=== PATIENT | male | born 1945 | race Caucasian/White ===

== ENCOUNTER → 2020-08-27 09:34 | Outpatient (BNVA) | payer BC, SELFPAY | PROVIDERS: PCP Family Medicine; Referring Provider Family Medicine; Visit Provider Nurse Practitioner Family | DX: Z12.5 Encounter for screening for malignant neoplasm of prostate (principal); N40.1 Benign prostatic hyperplasia with lower urinary tract symptoms; N39.43 Post-void dribbling; N39.41 Urge incontinence | CPT/HCPCS: 81003; G0103 ==

== ENCOUNTER → 2021-02-25 09:40 | Outpatient (BNVA) | payer MEDICARE, SELFPAY | PROVIDERS: PCP Family Medicine; Visit Provider Urology | DX: N40.1 Benign prostatic hyperplasia with lower urinary tract symptoms (principal) | CPT/HCPCS: 81003 ==

== ENCOUNTER → 2022-01-09 13:27 | Outpatient (BNVA) | payer MEDICARE, SELFPAY | PROVIDERS: PCP Family Medicine; Visit Provider Family Medicine | DX: E11.8 Type 2 diabetes mellitus with unspecified complications (principal); Z51.81 Encounter for therapeutic drug level monitoring; Z13.220 Encounter for screening for lipoid disorders | CPT/HCPCS: 80053; 80061; 85025 ==

== ENCOUNTER → 2022-04-03 08:08 | Outpatient (BNVA) | payer MEDICARE, SELFPAY | PROVIDERS: PCP Family Medicine; Visit Provider Family Medicine | DX: E53.8 Deficiency of other specified B group vitamins (principal); Z51.81 Encounter for therapeutic drug level monitoring; E11.9 Type 2 diabetes mellitus without complications; I10 Essential (primary) hypertension | CPT/HCPCS: 80053; 82043; 82607; 83036; 85025 ==

== ENCOUNTER → 2022-04-22 07:47 | Outpatient (BNVA) | payer MEDICARE, SELFPAY | PROVIDERS: PCP Family Medicine; Visit Provider Urology | DX: N40.1 Benign prostatic hyperplasia with lower urinary tract symptoms (principal); R31.0 Gross hematuria; N39.43 Post-void dribbling | CPT/HCPCS: 51741; 51798; 52000; 99214 ==

== ENCOUNTER → 2022-04-28 10:03 | Outpatient (BNVA) | payer MEDICARE, SELFPAY | PROVIDERS: PCP Family Medicine; Visit Provider Urology | DX: N40.1 Benign prostatic hyperplasia with lower urinary tract symptoms (principal); R31.0 Gross hematuria; N39.43 Post-void dribbling | CPT/HCPCS: 81003 ==

== ENCOUNTER → 2022-06-30 12:32 | Outpatient (BNVA) | payer MEDICARE, SELFPAY | PROVIDERS: PCP Family Medicine; Visit Provider Internal Medicine | DX: I10 Essential (primary) hypertension (principal); E11.9 Type 2 diabetes mellitus without complications; Z87.891 Personal history of nicotine dependence; Z79.4 Long term (current) use of insulin | CPT/HCPCS: 99214 ==

== ENCOUNTER → 2022-07-03 09:59 | Outpatient (BNVA) | payer MEDICARE, SELFPAY | PROVIDERS: PCP Family Medicine; Visit Provider Family Medicine | DX: E11.9 Type 2 diabetes mellitus without complications (principal); Z51.81 Encounter for therapeutic drug level monitoring; E55.9 Vitamin D deficiency, unspecified | CPT/HCPCS: 80053; 82306; 83036; 85025 ==

== ENCOUNTER → 2022-10-01 09:18 | Outpatient (BNVA) | payer MEDICARE, SELFPAY | PROVIDERS: PCP Family Medicine; Visit Provider Family Medicine | DX: E11.9 Type 2 diabetes mellitus without complications (principal); Z51.81 Encounter for therapeutic drug level monitoring; E55.9 Vitamin D deficiency, unspecified | CPT/HCPCS: 80053; 82306; 83036; 85025 ==

== ENCOUNTER → 2022-10-07 11:31 | Outpatient (BNVA) | payer MEDICARE, SELFPAY | PROVIDERS: PCP Family Medicine; Visit Provider Surgery | DX: K92.1 Melena (principal); K62.89 Other specified diseases of anus and rectum | CPT/HCPCS: 99213 ==

== ENCOUNTER → 2022-10-23 10:54 | Outpatient (BNVA) | payer MEDICARE, SELFPAY | PROVIDERS: PCP Family Medicine; Visit Provider Urology | DX: N40.1 Benign prostatic hyperplasia with lower urinary tract symptoms (principal) | CPT/HCPCS: 51741; 51798; 81003; 99213 ==

== ENCOUNTER 2022-11-12 05:48 | Day surgery (SDC) | payer MEDICARE, SELFPAY ==
[2022-11-10 09:39] VITALS: BMI 36.2
[2022-11-12 06:06] VITALS: BP 115/73; PULSE 73; RESP 18; TEMP 36.1; O2SAT 95
[2022-11-12] MEDS: sodium chloride 0.9% 1,000 ML 30 ML IV (06:30)
--- NOTE | 2022-11-12 06:41 | ANES.PREANE2 ---
Pre-Anesthetic Assessment Height/Weight: Height 1.8 m Weight 117.934 kg Temp Pulse Resp BP Pulse Ox O2 Del Method 97 F L 73 18 115/73 95 Room Air 11/12/22 06:06 11/12/22 06:06 11/12/22 06:06 11/12/22 06:06 11/12/22 06:06 11/12/22 06:06 Preop Diagnosis: Diarrhea, Hematochezia, Rectal Pain Operation Date: 11/12/22 07:00 Proposed Procedures p 67347 colon R19.7 , K92.1,K62.89(Not Applicable) - Tyrese Tsang DO Familial anesthetic complications: none Was Beta Mikaela taken within 24 hours: Yes Was Clonidine taken within 24 hours: N/A Last intake: Intake Last Liquid Date 11/11/22 Last Liquid Time 20:00 Last Solid Date 11/10/22 Last Solid Time 18:00 Social No alcohol and No tobacco Exam alert, No oriented x 3, clear to auscultation bilaterally and regular rate & rhythm Airway Submandibular: within normal limits Cervical ROM: within normal limits Mallampati: Class I Dentition: false Pulmonary Sleep Apnea (suspected undiagnosed observed apnea by spouse.) and None reported CV/HEM Hypertension None reported Hepatic None reported GI Gastroesophageal Reflux Disease Metabolic Diabetes Mellitus, Hyperlipidemia and Morbid Obesity Musc/skel Lower Back Pain and Osteoarthritis/DJD Neuropsych Transient Ischemic Attack Anesthetic Plan ASA status: 3 Anesthesia: MAC Medications/Allergies Home Medications Medication Instructions Recorded Confirmed Last Taken Type glimepiride 2 mg tablet 2 mg PO DAILY 11/11/19 11/10/22 11/10/22 History carvedilol 25 mg tablet 25 mg PO BID #60 tabs 03/20/22 11/10/22 11/12/22 Rx insulin detemir U-100 100 unit/mL See Rx Instructions .Route 04/10/22 11/10/22 11/10/22 Rx (3 mL) subcutaneous pen (Levemir .COMPLEX #60 mL FlexTouch U-100 Insulin) finasteride 5 mg tablet 5 mg PO QDAY #90 tabs 04/22/22 11/10/22 11/12/22 Rx atorvastatin 20 mg tablet 20 mg PO .HS #90 tabs 04/29/22 11/10/22 11/11/22 Rx furosemide 20 mg tablet 20 mg PO DAILY #90 tabs 05/28/22 11/10/22 11/09/22 Rx potassium chloride 10 mEq 10 meq PO DAILY #90 tabs 05/28/22 11/10/22 11/09/22 Rx tablet,extended release cholecalciferol (vitamin D3) 25 25 mcg PO DAILY #30 tabs 07/08/22 11/10/22 11/11/22 Rx mcg (1,000 unit) tablet metformin 500 mg tablet 500 mg PO BID #180 tabs 07/21/22 11/12/22 11/11/22 21:00 Rx clopidogrel 75 mg tablet 75 mg PO DAILY #90 tabs 07/30/22 11/10/22 11/07/22 Rx tamsulosin 0.4 mg capsule 0.4 mg PO .two at bedtime #60 caps 07/30/22 11/10/22 11/11/22 Rx amlodipine 10 mg tablet 10 mg PO DAILY #90 tabs 08/11/22 11/10/22 11/12/22 Rx sitagliptin phosphate 100 mg 100 mg PO DAILY #90 tabs 08/19/22 11/10/22 11/11/22 Rx tablet (Januvia) valsartan 160 See Rx Instructions .Route 08/20/22 11/10/22 11/12/22 Rx mg-hydrochlorothiazide 12.5 mg .COMPLEX #180 tabs tablet citalopram 10 mg tablet 10 mg PO DAILY #30 tabs 10/01/22 11/10/22 11/12/22 Rx famotidine 40 mg tablet 40 mg PO DAILY #90 tabs 10/01/22 11/10/22 11/10/22 Rx alprazolam 0.5 mg tablet 0.5 mg PO TID PRN anxiety #90 tabs 10/23/22 11/10/22 11/12/22 Rx Allergies Allergy/AdvReac Type Severity Reaction Status Date / Time No Known Allergies Allergy Verified 10/23/22 10:57 Current Medications Generic Name Dose Route Start Last Admin Trade Name Freq PRN Reason Stop Dose Admin Sodium Chloride 1,000 mls @ 30 mls/hr 11/12/22 06:15 11/12/22 06:30 Sodium Chloride 0.9% IV 11/13/22 06:14 30 mls/hr .Q24H NATALIE Administration PFSH Anesthesia Medical History BPH loc w urin obs/LUTS Diabetes History of TIA (transient ischemic attack) HTN (hypertension) with goal to be determined Urgency incontinence Urinary incontinence Surgical History Hx of colonoscopy with polypectomy Hx of umbilical hernia repair S/P carpal tunnel release S/P cervical spinal fusion Family History Mother , in her 80's Cancer breast with mets Father , at age 85 Dementia Other Diabetes Hypertension Stroke Social History Smoking and tobacco status: former smoker Alcohol intake: never Marital status: Current occupational status: retired Data Anesthesia Cardiac Studies: No Data to Display
[2022-11-12 06:55] LABS: Glucose Point of Care 166 mg/dL (70-110)
--- NOTE | 2022-11-12 07:05 | PM.HP ---
Providers/Chief Complaint Primary Care Provider: Wali Elena MD Chief Complaint: R19.7, K92.1, K92.89 History of Present Illness Rishi Fuentes is a 77 year old male here for colonoscopy with random biopsies Medications/Allergies Home Medications Medication Instructions Recorded Confirmed Last Taken Type glimepiride 2 mg tablet 2 mg PO DAILY 11/11/19 11/10/22 11/10/22 History carvedilol 25 mg tablet 25 mg PO BID #60 tabs 03/20/22 11/10/22 11/12/22 Rx insulin detemir U-100 100 unit/mL See Rx Instructions .Route 04/10/22 11/10/22 11/10/22 Rx (3 mL) subcutaneous pen (Levemir .COMPLEX #60 mL FlexTouch U-100 Insulin) finasteride 5 mg tablet 5 mg PO QDAY #90 tabs 04/22/22 11/10/22 11/12/22 Rx atorvastatin 20 mg tablet 20 mg PO .HS #90 tabs 04/29/22 11/10/22 11/11/22 Rx furosemide 20 mg tablet 20 mg PO DAILY #90 tabs 05/28/22 11/10/22 11/09/22 Rx potassium chloride 10 mEq 10 meq PO DAILY #90 tabs 05/28/22 11/10/22 11/09/22 Rx tablet,extended release cholecalciferol (vitamin D3) 25 25 mcg PO DAILY #30 tabs 07/08/22 11/10/22 11/11/22 Rx mcg (1,000 unit) tablet metformin 500 mg tablet 500 mg PO BID #180 tabs 07/21/22 11/12/22 11/11/22 21:00 Rx clopidogrel 75 mg tablet 75 mg PO DAILY #90 tabs 07/30/22 11/10/22 11/07/22 Rx tamsulosin 0.4 mg capsule 0.4 mg PO .two at bedtime #60 caps 07/30/22 11/10/22 11/11/22 Rx amlodipine 10 mg tablet 10 mg PO DAILY #90 tabs 08/11/22 11/10/22 11/12/22 Rx sitagliptin phosphate 100 mg 100 mg PO DAILY #90 tabs 08/19/22 11/10/22 11/11/22 Rx tablet (Januvia) valsartan 160 See Rx Instructions .Route 08/20/22 11/10/22 11/12/22 Rx mg-hydrochlorothiazide 12.5 mg .COMPLEX #180 tabs tablet citalopram 10 mg tablet 10 mg PO DAILY #30 tabs 10/01/22 11/10/22 11/12/22 Rx famotidine 40 mg tablet 40 mg PO DAILY #90 tabs 10/01/22 11/10/22 11/10/22 Rx alprazolam 0.5 mg tablet 0.5 mg PO TID PRN anxiety #90 tabs 10/23/22 11/10/22 11/12/22 Rx Allergies Allergy/AdvReac Type Severity Reaction Status Date / Time No Known Allergies Allergy Verified 10/23/22 10:57 PFSH Acute PFSH: Medical History BPH loc w urin obs/LUTS Diabetes History of TIA (transient ischemic attack) HTN (hypertension) with goal to be determined Urgency incontinence Urinary incontinence Surgical History Hx of colonoscopy with polypectomy Hx of umbilical hernia repair S/P carpal tunnel release S/P cervical spinal fusion Family History Mother , in her 80's Cancer breast with mets Father , at age 85 Dementia Other Diabetes Hypertension Stroke Social History Smoking and tobacco status: former smoker Alcohol intake: never Marital status: Current occupational status: retired Vitals/I&O/Wt Last Vital Signs Temp 97 F L 11/12/22 06:06 Pulse 73 11/12/22 06:06 Resp 18 11/12/22 06:06 BP 115/73 11/12/22 06:06 Pulse Ox 95 11/12/22 06:06 O2 Del Method Room Air 11/12/22 06:06 Weight last 48 hrs Weight 260 lb A&P Assessment and plan (1) Rectal pain: (2) Hematochezia: (3) Diarrhea: Plan Colonoscopy with random biopsies Attestations Medical Necessity Statement*: Home Coding Level of Care Code Acute Code for g Fwd Diagnoses Rectal pain K62.89 Hematochezia K92.1 Diarrhea R19.7
[2022-11-12 07:36] VITALS: BP 113/62; PULSE 69; RESP 16; TEMP 36.2; O2SAT 96
[2022-11-12 07:50] VITALS: BP 124/61; PULSE 67; RESP 16; O2SAT 94
--- NOTE | 2022-11-12 14:31 | ANE.PACU2 ---
Inpatient post-anesthesia follow up: Airway intact: Yes Vital signs: Temperature 97.1 F Pulse Rate 67 Respiratory Rate 16 Blood Pressure 124/61 Pulse Oximetry 94 Oxygen Delivery Me thod Room Air Oxygen Flow Rate Fraction of Inspir ed Oxygen Hydration adequate: Yes Nausea and vomiting: No Pain level: 2 Mental status: Baseline
== END 2022-11-12 08:05 | disposition home or self-care (01) ==
PROVIDERS: PCP Family Medicine; Visit Provider Surgery
PROC: 0DJD8ZZ Inspection of Lower Intestinal Tract, Via Natural or Artificial Opening Endoscopic (ICD-10-PCS; CPT 45378; principal; 2022-11-12 07:00)
DX: R19.7 Diarrhea, unspecified (principal); K92.1 Melena; K62.89 Other specified diseases of anus and rectum; K64.8 Other hemorrhoids; K60.1 Chronic anal fissure; K57.30 Diverticulosis of large intestine without perforation or abscess without bleeding; K63.5 Polyp of colon; G47.30 Sleep apnea, unspecified; I10 Essential (primary) hypertension; K21.9 Gastro-esophageal reflux disease without esophagitis; Z86.73 Personal history of transient ischemic attack (TIA), and cerebral infarction without residual deficits; E78.5 Hyperlipidemia, unspecified; E11.9 Type 2 diabetes mellitus without complications; E66.01 Morbid (severe) obesity due to excess calories; Z68.36 Body mass index [BMI] 36.0-36.9, adult; Z79.4 Long term (current) use of insulin; Z87.891 Personal history of nicotine dependence
CPT/HCPCS: 36415; 36416; 45380; 45385; 82274; 82962; 83630; 87493; 87506; 88305; J2704; J3490; J7030

== ENCOUNTER → 2022-11-26 16:50 | Outpatient (BNVA) | payer MEDICARE, SELFPAY | PROVIDERS: PCP Family Medicine; Visit Provider Surgery | DX: K64.9 Unspecified hemorrhoids (principal); K92.1 Melena; K62.89 Other specified diseases of anus and rectum; K63.5 Polyp of colon | CPT/HCPCS: 99024; 99203; 99212; 99213 ==

== ENCOUNTER → 2023-03-05 14:51 | Outpatient (BNVA) | payer MEDICARE, SELFPAY | PROVIDERS: PCP Family Medicine; Visit Provider Family Medicine | DX: Z51.81 Encounter for therapeutic drug level monitoring (principal); Z13.220 Encounter for screening for lipoid disorders; E11.9 Type 2 diabetes mellitus without complications; E53.8 Deficiency of other specified B group vitamins; I10 Essential (primary) hypertension | CPT/HCPCS: 80053; 80061; 82607; 83036; 85025 ==

== ENCOUNTER 2023-03-30 05:58 | Day surgery (SDC) | payer MEDICARE, SELFPAY ==
[2023-03-27 09:50] VITALS: BMI 36.2
[2023-03-30] VITALS (10 sets, daily range): BP systolic 90–144; BP diastolic 53–82; PULSE 60–68; RESP 15–18; TEMP 36.1–36.3; O2SAT 91–95
[2023-03-30] MEDS: sodium chloride 0.9% 1,000 ML 30 ML IV (06:34)
[2023-03-30 06:36] LABS: Glucose Point of Care 140 mg/dL (70-110)
--- NOTE | 2023-03-30 06:51 | ANES.PREANE2 ---
Pre-Anesthetic Assessment Height/Weight: Height 1.8 m Weight 117.934 kg Temp Pulse Resp BP Pulse Ox O2 Del Method 97 F L 65 18 144/67 95 Room Air 03/30/23 06:35 03/30/23 06:35 03/30/23 06:35 03/30/23 06:35 03/30/23 06:35 03/30/23 06:35 Operation Date: 03/30/23 07:00 Proposed Procedures p [id number] lateral internal sphincterectomy K62.89, K60.2(Not Applicable) - Tyrese Tsang DO Familial anesthetic complications: NOne Was Beta Mikaela taken within 24 hours: Yes Was Clonidine taken within 24 hours: N/A Last intake: Intake Last Liquid Date 03/29/23 Last Liquid Time 21:30 Last Solid Date 03/29/23 Last Solid Time 19:00 Social No alcohol and No tobacco Exam alert, oriented x 3, clear to auscultation bilaterally and regular rate & rhythm Airway Mallampati: Class III Dentition: false CV/HEM Hypertension GI Gastroesophageal Reflux Disease Metabolic Diabetes Mellitus and Morbid Obesity Neuropsych Transient Ischemic Attack (plavix holding since ) Anesthetic Plan ASA status: 3 Anesthesia: Choice Risk of > 500 ml blood loss (7ml/kg in children): No Medications/Allergies Home Medications Medication Instructions Recorded Confirmed Last Taken Type finasteride 5 mg tablet 5 mg PO QDAY #90 tabs 04/22/22 03/30/23 03/29/23 Rx atorvastatin 20 mg tablet 20 mg PO .HS #90 tabs 04/29/22 03/30/23 03/29/23 Rx furosemide 20 mg tablet 20 mg PO DAILY #90 tabs 05/28/22 03/30/23 03/29/23 Rx potassium chloride 10 mEq 10 meq PO DAILY #90 tabs 05/28/22 03/30/23 03/29/23 Rx tablet,extended release cholecalciferol (vitamin D3) 25 25 mcg PO DAILY #30 tabs 07/08/22 03/30/23 03/29/23 Rx mcg (1,000 unit) tablet metformin 500 mg tablet 500 mg PO BID #180 tabs 07/21/22 03/30/23 03/29/23 Rx clopidogrel 75 mg tablet 75 mg PO DAILY #90 tabs 07/30/22 03/27/23 03/23/23 Rx amlodipine 10 mg tablet 10 mg PO DAILY #90 tabs 08/11/22 03/30/23 03/30/23 Rx sitagliptin phosphate 100 mg 100 mg PO DAILY #90 tabs 08/19/22 03/30/23 03/29/23 Rx tablet (Januvia) valsartan 160 See Rx Instructions .Route 08/20/22 03/30/23 03/29/23 Rx mg-hydrochlorothiazide 12.5 mg .COMPLEX #180 tabs tablet famotidine 40 mg tablet 40 mg PO DAILY #90 tabs 10/01/22 03/30/23 03/29/23 Rx alprazolam 0.5 mg tablet 0.5 mg PO TID PRN anxiety #90 tabs 10/23/22 03/30/23 03/29/23 Rx glimepiride 2 mg tablet 2 mg PO DAILY #90 tabs 12/01/22 03/30/23 03/29/23 Rx tamsulosin 0.4 mg capsule 0.4 mg PO .two at bedtime #60 caps 12/01/22 03/30/23 03/29/23 Rx pen needle, diabetic 31 gauge x #100 ea 12/09/22 03/18/23 Unknown Rx 12/16 (BD Ultra-Fine Short Pen Needle) hydrocortisone 2.5 % topical cream See Rx Instructions .Route 12/24/22 03/27/23 Unknown Rx with perineal applicator .COMPLEX #28 grams (Procto-Med HC) carvedilol 25 mg tablet See Rx Instructions .Route 01/20/23 03/30/23 03/30/23 Rx .COMPLEX #60 tabs citalopram 10 mg tablet 10 mg PO DAILY #30 tabs 02/04/23 03/30/23 03/29/23 Rx insulin detemir U-100 100 unit/mL See Rx Instructions .Route 03/17/23 03/30/23 03/29/23 Rx (3 mL) subcutaneous pen (Levemir .COMPLEX #60 mL FlexTouch U-100 Insulin) Allergies Allergy/AdvReac Type Severity Reaction Status Date / Time No Known Allergies Allergy Verified 03/27/23 10:42 Current Medications Generic Name Dose Route Start Last Admin Trade Name Freq PRN Reason Stop Dose Admin Sodium Chloride 1,000 mls @ 30 mls/hr 03/30/23 06:15 03/30/23 06:34 Sodium Chloride 0.9% IV 03/31/23 06:14 30 mls/hr .Q24H NATALIE Administration PFSH Anesthesia Medical History BPH loc w urin obs/LUTS Diabetes History of TIA (transient ischemic attack) HTN (hypertension) with goal to be determined Urgency incontinence Urinary incontinence Surgical History Hx of colonoscopy with polypectomy Hx of umbilical hernia repair S/P carpal tunnel release S/P cervical spinal fusion Family History Mother , in her 80's Cancer breast with mets Father , at age 85 Dementia Other Diabetes Hypertension Stroke Social History (System 03/27/23 @ 10:42 by Marilin Rowley) Smoking and tobacco status: former smoker Alcohol intake: never Marital status: Current occupational status: retired Data Anesthesia Cardiac Studies: No Data to Display
[2023-03-30] MEDS: ceFAZolin 2,000 MG in sodium chloride 0.9% (plus) 50 ML 100 MG IV (07:14)
[2023-03-30] MEDS: lidocaine-epi 2% 20 mL INJ INJECTION (07:40)
--- NOTE | 2023-03-30 07:55 | PM.OP ---
Operative Report Date of procedure: March 30, 2023 Pre-op diagnosis: Chronic anal fissure Post-op diagnosis: Chronic anal fissure, grade 3 internal hemorrhoids at all 3 pillars Procedure done: Lateral internal sphincterotomy Specimens removed/disposition: None Surgeon: Dr. Tyrese Tsang DO Anesthesia: General Estimated blood loss (mL): 2 Complications: None apparent Brief History: This very pleasant 78-year-old gentleman who was found to have a chronic anal fissure by colonoscopy. He also had hemorrhoids at the time. He used Anusol as an outpatient and reported good results on his hemorrhoids. He still having sharp pains with bowel movements. He desired a lateral internal sphincterotomy. The risk benefits were explained and understood. He understands there is a small risk of incontinence of flatus and/or stool. He wishes to proceed. Procedure: Patient was wheeled in operative room and remained on the hospital bed in the supine position. General tracheal intubation was achieved by department anesthesia. The patient was then put into the prone jackknife position. His anus was inspected prepped and draped in usual sterile fashion. Timeout was performed. All present were in agreement. The intersphincteric groove was identified. An anoscope was then placed into the anus and the anus was inspected. There was a chronic posterior anal fissure identified. There were large grade 3 internal hemorrhoids at all 3 pillars. A 1.5 cm radial incision was made in the left lateral position over the intersphincteric groove. Blunt dissection with hemostats was then used to separate the internal anal sphincter from the external anal sphincter. The anal sphincter from lateral to the dentate line was from the other muscle fibers. Bovie cautery was then used to transect approximately one third of the internal anal sphincter. Hemostasis was achieved. 4-0 Monocryl was then used to close the incision in a subcuticular interrupted fashion. Sterile dressing was applied. Patient tolerated procedure well.
[2023-03-30] MEDS: HYDROcodone-acetaminophen 5-325 mg Tablet 1 TAB PO (09:16)
== END 2023-03-30 09:30 | disposition home or self-care (01) ==
PROVIDERS: PCP Family Medicine; Visit Provider Surgery
PROC: (CPT 46080; principal; 2023-03-30 07:00)
DX: K60.1 Chronic anal fissure (principal); K64.8 Other hemorrhoids
CPT/HCPCS: 46080; 36416; 82962; J0690; J1100; J2405; J2704; J3010; J3490; J7030

== ENCOUNTER → 2023-04-14 09:43 | Outpatient (BNVA) | payer MEDICARE, SELFPAY | PROVIDERS: PCP Family Medicine; Visit Provider Surgery | DX: K64.8 Other hemorrhoids (principal); Z98.890 Other specified postprocedural states | CPT/HCPCS: 99024; 99213 ==

== ENCOUNTER 2023-04-30 10:18 | Day surgery (SDC) | payer MEDICARE, SELFPAY ==
[2023-04-29 13:48] VITALS: BMI 36.2
[2023-04-30] VITALS (9 sets, daily range): BP systolic 123–157; BP diastolic 74–89; PULSE 47–96; RESP 16–19; TEMP 36.1–36.4; O2SAT 91–96
--- NOTE | 2023-04-30 10:39 | W.PM.OPSUD ---
Surgery/Procedure H&P Update DATE OF PROCEDURE: April 30, 2023 DATE H&P PERFORMED: 04/14/23 H&P UPDATE INFORMATION: I have reviewed H&P completed within last 30 days, I have examined patient prior to procedure and No changes to prior documentation PLANNED PROCEDURE: Operation Date: 04/30/23 11:50 Proposed Procedures p [id number] hemmorroidectomy K64.8(Not Applicable) - Tyrese Tsang DO
[2023-04-30] MEDS: sodium chloride 0.9% 1,000 ML 30 ML IV (10:47)
--- NOTE | 2023-04-30 10:58 | ANES.PAUD2 ---
Pre-Anesthetic Update Pre-Anesthetic Assessment: Date of Surgery/Procedure: 04/30/23 Proposed Procedure: Operation Date: 04/30/23 11:50 Proposed Procedures p [id number] hemmorroidectomy K64.8(Not Applicable) - Tyrese Tsang, DO Any changes to Pre-Anesthetic Assessment?: No Last Intake: Intake Last Liquid Date 04/29/23 Last Liquid Time 20:00 Last Solid Date 04/29/23 Last Solid Time 19:00 Vitals: Pulse Rhythm Regular 04/30/23 10:39 Pulse Strength 3+ Normal 04/30/23 10:39 Oxygen Delivery Me thod Room Air 04/30/23 10:39 Exam: Pre-Anes Outpt Exam: alert, oriented x 3, clear to auscultation bilaterally and regular rate & rhythm Cardiac Studies: No Data to Display
[2023-04-30] MEDS: midazolam 1 mg/mL INJ 2 mL 2 MG IVP (11:06)
[2023-04-30] MEDS: ceFAZolin 2,000 MG in sodium chloride 0.9% (plus) 50 ML 100 MG IV (11:37)
[2023-04-30] MEDS: thrombin 5,000 unit SDV 5000 UNIT XX (12:39)
[2023-04-30] MEDS: BUPivacaine liposome 13.3 mg/mL SDV 10 mL 133 MG INFILTRATI (12:39)
--- NOTE | 2023-04-30 12:39 | PM.OP ---
Operative Report Date of procedure: April 30, 2023 Pre-op diagnosis: Hemorrhoids Post-op diagnosis: same Procedure done: Hemorrhoidectomy Implants: Thrombin Gelfoam Specimens removed/disposition: Hemorrhoids Surgeon: Tyrese Tsang DO Anesthesia: General Estimated blood loss (mL): 5 Complications: None apparent Brief History: This very pleasant 78-year-old gentleman was found to have very large internal hemorrhoids. Medical treatment was unsuccessful. Hemorrhoidectomy was indicated. The risk and benefits were explained and documented. Procedure: Patient was well in the operative room and general endotracheal ovation was achieved by the department anesthesia. He was then placed into the prone jackknife position. The anus was inspected prepped and draped in usual sterile fashion. A timeout was performed. All present were in agreement. Retractor was used to examine the anus and he had sizable hemorrhoids at all 3 pillars. The largest pillar was the right posterior. All 3 pillars were taken in the same manner. The exterior most edge of the hemorrhoid was slightly ligated with electrocautery. The harmonic scalpel was then used to excise all 3 hemorrhoidal pillars. There was minimal bleeding. Thrombin-soaked Gelfoam was then placed into the anus. Sterile bandage was applied. Patient tolerated procedure well.
[2023-04-30] MEDS: BUPivacaine 0.5% INJ 10 mL INJECTION (12:41)
[2023-04-30 12:51] LABS: Glucose Point of Care 48 mg/dL (70-110)
[2023-04-30 12:51] LABS: Glucose Point of Care 129 mg/dL (70-110)
[2023-04-30] MEDS: HYDROcodone-acetaminophen 10-325 mg Tablet 1 TAB PO (13:49)
--- NOTE | 2023-04-30 14:34 | ANE.PACU2 ---
Inpatient post-anesthesia follow up: Airway intact: Yes Vital signs: Temperature 97.5 F Pulse Rate 61 Respiratory Rate 17 Blood Pressure 156/74 Pulse Oximetry 95 Oxygen Delivery Me thod Room Air Oxygen Flow Rate 6 Fraction of Inspir ed Oxygen Hydration adequate: Yes Nausea and vomiting: No Pain level: 2 Mental status: Baseline
== END 2023-04-30 14:15 | disposition home or self-care (01) ==
PROVIDERS: PCP Family Medicine; Visit Provider Surgery
PROC: (CPT 46260; principal; 2023-04-30 11:40)
DX: K64.8 Other hemorrhoids (principal); N40.1 Benign prostatic hyperplasia with lower urinary tract symptoms; N13.8 Other obstructive and reflux uropathy; E11.9 Type 2 diabetes mellitus without complications; Z86.73 Personal history of transient ischemic attack (TIA), and cerebral infarction without residual deficits; I10 Essential (primary) hypertension; Z87.891 Personal history of nicotine dependence
CPT/HCPCS: 46260; 36416; 82962; 88304; C9290; J0690; J1100; J2250; J2405; J2704; J2710; J3010; J3490; J7030

== ENCOUNTER 2023-05-12 11:11 | Observation (INO) | payer MEDICARE, SELFPAY ==
[2023-05-12] VITALS (10 sets, daily range): BP systolic 122–169; BP diastolic 50–75; PULSE 63–76; RESP 16–18; TEMP 36.5–36.8; O2SAT 95–98; BMI 36.2
[2023-05-12 11:39] LABS: Basophils % 0.5 %; Eosinophils # 0.3 10^3/uL (0.0-0.8); Eosinophils % 3.4 %; Hematocrit 39.3 % (37-53); Lymphocytes # 1.5 10^3/uL (0.8-4.8); Lymphocytes % 19.7 %; Mean Corpuscular HGB Conc 32.8 g/dL (30-55); Mean Corpuscular Hemoglobin 29.5 pg (27-33); Mean Corpuscular Volume 89.7 fl (82-101); Mean Platelet Volume 9.8 fL (7.4-10.4); Monocytes # 0.6 10^3/uL (0.2-0.9); Monocytes % 7.3 %; Neutrophils # 5.25 10^3/uL (1.8-7.7); Neutrophils % 68.6 %; Nucleated Red Blood Cells % 0 %; Platelet Count 249 10^3/cmm (157-399); Red Blood Count 4.38 10^6/uL (3.85-5.65); Red Cell Distribution Width 13.4 % (12.1-15.1); White Blood Count 7.66 10^3/uL (3.29-11.43)
--- NOTE | 2023-05-12 11:40 | W.ED.GIBLEED ---
HPI - GI Bleed General: Chief complaint: GI Bleed Stated complaint: rectal bleeding Time Seen by Provider: 05/12/23 11:26 Source: patient and family Mode of arrival: ambulatory Limitations: no limitations History of Present Illness: Patient is 78-year-old male who presents the emergency room with rectal bleeding. Patient had a recent hemorrhoidectomy surgery with Dr. Tsang on 04/30/23. Patient did report normal postoperative bleeding for approximately 4 to 5 days. Patient was reported to hold Plavix until bleeding was minimal. Patient stated that he did restart Plavix on 05/10/2023. Patient stated that he woke up this morning with gross amount of bright red rectal bleeding. States that he has had to wear pull-ups and has changed 5-6 pull-ups since this AM. Denies any abdominal pain, nausea, vomiting, chest pain, shortness of breath, pain. Does state that he does have current diarrhea and feels this is making it worse as it is irritating his rectum. No other complaints this time. MD complaint: blood on toilet paper, blood streaked stool and gross hematochezia Associated symptoms: Denies abdominal pain, chills, fever(s), headache(s), nausea, rash or vomiting Review of Systems Const: Denies: fever(s) or chills Eyes: Denies: change in vision or blurry vision ENMT: Denies: throat pain or mouth pain Card: Denies: chest pain or palpitations Resp: Denies: dyspnea or productive cough GI: Reports: hematochezia; Denies: abdominal pain, nausea or vomiting : Denies: flank pain or difficulty urinating Musc: Denies: neck pain or back pain Skin/Breast: Denies: rash Neuro: Denies: headache(s) Psych: Denies: anxiety PFSH ED PFSH: Medical History BPH loc w urin obs/LUTS Diabetes History of TIA (transient ischemic attack) HTN (hypertension) with goal to be determined Urgency incontinence Urinary incontinence Surgical History Hx of colonoscopy with polypectomy Hx of umbilical hernia repair S/P carpal tunnel release S/P cervical spinal fusion Family History Mother , in her 80's Cancer breast with mets Father , at age 85 Dementia Other Diabetes Hypertension Stroke Social History Smoking and tobacco status: former smoker Alcohol intake: never Marital status: Current occupational status: retired Physical Exam Const: COMMON NORMALS: patient oriented x3 and alert GENERAL APPEARANCE: cooperative ORIENTATION/CONSCIOUSNESS: Yes awake HENMT: COMMON NORMALS: normocephalic HEAD & SCALP: normal to inspection and normocephalic Eye: COMMON NORMALS: EOMs intact bilaterally Neck/C-Spine: COMMON NORMALS: full ROM, no lymphadenopathy and no JVD Chest: CHEST: Yes Symmetrical chest wall rise Resp: COMMON NORMALS: normal respiratory effort and clear to auscultation bilaterally EFFORT & INSPECTION: Yes symmetric chest movement AUSCULTATION: clear to auscultation bilaterally Cardio: COMMON NORMALS: no JVD and S1 normal heart sound present HEART SOUNDS: S1 normal heart sound present GI: COMMON NORMALS: Soft to palpation and non-tender AUSCULTATION: Yes normoactive bowel sounds PALPATION: Yes Soft to palpation : COMMON NORMALS: Yes no CVA tenderness BLADDER/KIDNEY EXAM: Yes no CVA tenderness Back/Pelvis: COMMON NORMALS: no CVA tenderness Neuro: COMMON NORMALS: patient oriented x3 SENSORIUM/ORIENTATION: Yes alert Course Vital Signs: Vital signs: Vital Signs Temperature 98.2 F 05/12/23 11:13 Pulse Rate 73 05/12/23 16:43 Respiratory Rate 16 05/12/23 16:43 Blood Pressure 169/71 05/12/23 16:43 Pulse Oximetry 96 05/12/23 16:43 Oxygen Delivery Me thod Room Air 05/12/23 11:49 MDM - GI Bleed Medical Decision Making Patient presents here with rectal bleeding and had a hemorrhoidectomy and restart his Plavix likely causing bleeding did give him TXA down here Dr. Tsang seen patient he still having some bleeding spoke to Dr. Tsang will admit for observation. Medical Records I reviewed the patient's medical records. Lab Data I reviewed the patient's lab results. 05/12/23 15:51 05/12/23 11:29 Laboratory Results WBC 7.66 10^3/uL (3.29-11.43) 05/12/23 11:29 RBC 4.38 10^6/uL (3.85-5.65) 05/12/23 11:29 Hgb 11.80 g/dL (11.27-16.99) 05/12/23 15:51 Hct 35.4 % (37-53) L 05/12/23 15:51 MCV 89.7 fl (82-101) 05/12/23 11:29 MCH 29.5 pg (27-33) 05/12/23 11: MCHC 32.8 g/dL (30-55) 05/12/23 11:29 RDW 13.4 % (12.1-15.1) 05/12/23 11: Plt Count 249 10^3/cmm (157-399) 05/12/23 11: MPV 9.8 fL (7.4-10.4) 05/12/23 11: Neut % (Auto) 68.6 % 05/12/23 11: Lymph % (Auto) 19.7 % 05/12/23 11:29 [place] % (Auto) 7.3 % 05/12/23 11:29 Eos % (Auto) 3.4 % 05/12/23 11: Baso % (Auto) 0.5 % 05/12/23 11: Neut # (Auto) 5.25 10^3/uL (1.8-7.7) 05/12/23 11:29 Lymph # (Auto) 1.5 10^3/uL (0.8-4.8) 05/12/23 11: [place] # (Auto) 0.6 10^3/uL (0.2-0.9) 05/12/23 11:29 Eos # (Auto) 0.3 10^3/uL (0.0-0.8) 05/12/23 11:29 Baso # (Auto) 0.0 10^3/uL (0.0-0.1) 05/12/23 11: Nucleated RBC % (auto) 0 % 05/12/23 11: Nucleated RBCs # 0.0 /100WBC 05/12/23 11: PT 13.60 SECONDS (12.1-14.9) 05/12/23 11: INR 1.01 (0.8-1.2) 05/12/23 11:29 Sodium 135 mmol/L (136-145) L 05/12/23 11:29 Potassium 4.5 mmol/L (3.5-5.1) 05/12/23 11:29 Chloride 101 mmol/L (98-107) 05/12/23 11:29 Carbon Dioxide 23 mmol/L (22-29) 05/12/23 11:29 Anion Gap 15.5 (5-19) 05/12/23 11:29 BUN 26 mg/dL (8-23) H 05/12/23 11:29 Creatinine 1.1 mg/dL (0.7-1.2) 05/12/23 11:29 GFR Calculation Not Reportable 05/12/23 11:29 Glucose 107 mg/dL (65-115) 05/12/23 11:29 Calculated Osmolality 285 mOsm/kg (285-295) 05/12/23 11:29 Calcium 8.6 mg/dL (8.5-10.5) 05/12/23 11:29 Total Bilirubin 0.3 mg/dL (0.15-1.2) 05/12/23 11:29 AST 11 U/L (0-40) 05/12/23 11:29 ALT 19 U/L (0-41) 05/12/23 11:29 Alkaline Phosphatase 92 U/L (40-130) 05/12/23 11:29 Total Protein 6.9 g/dL (6.6-8.7) 05/12/23 11:29 Albumin 4.0 g/dL (3.5-5.2) 05/12/23 11:29 Globulin 2.9 g/dL (1.3-4.6) 05/12/23 11:29 No radiology studies performed this visit Discharge Plan Discharge Patient Disposition: Placed in Observation Clinical Impression: Lower gastrointestinal hemorrhage Condition: Stable Prescriptions: No Action famotidine 40 mg tablet 40 mg PO DAILY Qty: 90 3RF metformin 500 mg tablet 500 mg PO BID Qty: 180 3RF (DME) pen needle, diabetic [BD Ultra-Fine Short Pen Needle] 31 gauge x 5/16 needle See Rx Instructions .Route Qty: 100 6RF Rx Instructions: As directed alprazolam 0.5 mg tablet 0.5 mg PO TID PRN (Reason: anxiety) Qty: 90 2RF docusate sodium [Colace] 100 mg capsule 100 mg PO BID Qty: 14 0RF carvedilol 25 mg tablet 25 mg PO BID atorvastatin 20 mg tablet 20 mg PO BEDTIME valsartan-hydrochlorothiazide 160-12.5 mg tablet 1 tab PO BID hydrocodone-acetaminophen 10-325 mg tablet 1 tab PO Q6H PRN (Reason: pain) Qty: 20 0RF Tylenol Ex Str Rapid Release 500 mg Tablet 1,000 mg PO Q6H PRN (Reason: Pain) Vitamin D3 10 mcg (400 unit) Tablet 10 mcg PO DAILY Levemir FlexPen 100 unit/mL (3 mL) insulin pen See Rx Instructions .ROUTE .COMPLEX Rx Instructions: 80 units subcutaneously in the am and 40 units in the pm citalopram 10 mg tablet 10 mg PO QAM potassium chloride 10 mEq tablet extended release 10 meq PO QAM clopidogrel 75 mg tablet 75 mg PO QAM glimepiride 2 mg tablet 2 mg PO BEDTIME tamsulosin 0.4 mg capsule 0.8 mg PO BEDTIME amlodipine 10 mg tablet 10 mg PO QAM furosemide 20 mg tablet 20 mg PO QAM finasteride 5 mg tablet 5 mg PO QAM Januvia 100 mg tablet 100 mg PO QAM Referrals: Tyrese Tsang DO [Physician] - 1-3 days Wali Elena MD [Primary Care Provider] - Discharge Diet: Advance as tolerated Discharge Activity: Resume usual activity Patient Instructions: Gastrointestinal Bleeding (ED) Activity Restrictions/Additional Instructions: hold plavix Coding Level of Care Code ED [employer] Attendant for Glynn Sharma
[2023-05-12 12:04] LABS: INR 1.01 (0.8-1.2)
[2023-05-12 12:09] LABS: Alanine Aminotransferase 19 U/L (0-41); Alkaline Phosphatase 92 U/L (40-130); Anion Gap 15.5 (5-19); Aspartate Amino Transferase 11 U/L (0-40); Blood Urea Nitrogen 26 mg/dL (8-23); Calcium 8.6 mg/dL (8.5-10.5); Carbon Dioxide 23 mmol/L (22-29); Chloride 101 mmol/L (98-107); Globulin 2.9 g/dL (1.3-4.6); Glucose 107 mg/dL (65-115); Osmolality Calculated 285 mOsm/kg (285-295); Potassium 4.5 mmol/L (3.5-5.1); Sodium 135 mmol/L (136-145); Total Bilirubin 0.3 mg/dL (0.15-1.2); Total Protein 6.9 g/dL (6.6-8.7)
--- NOTE | 2023-05-12 13:00 | PC.NURSE ---
THIS RN AND TECH WENT TO PATIENT ROOM, ALL LINES CHANGED AND BRIEF CHANGED DUE TO BEING SATURATED WITH BLOOD. NEW BRIEF AND LINENS PLACED.
--- NOTE | 2023-05-12 13:40 | P.CONIM_ITS ---
Providers/Reason For Consult Primary Care Provider: Wali Elena MD History of Present Illness History of Present Illness Rishi Fuentes is a 78 year old male Medications/Allergies Home Medications Medication Instructions Recorded Confirmed Last Taken Type metformin 500 mg tablet 500 mg PO BID #180 tabs 07/21/22 05/12/23 05/12/23 Rx famotidine 40 mg tablet 40 mg PO DAILY #90 tabs 10/01/22 05/12/23 05/12/23 Rx pen needle, diabetic 31 gauge x #100 ea 12/09/22 05/12/23 04/29/23 Rx 5/16 (BD Ultra-Fine Short Pen Needle) docusate sodium 100 mg capsule 100 mg PO BID #14 caps 03/30/23 05/12/23 05/12/23 Rx (Colace) alprazolam 0.5 mg tablet 0.5 mg PO TID PRN anxiety #90 tabs 04/21/23 05/12/23 04/30/23 Rx atorvastatin 20 mg tablet 20 mg PO BEDTIME 04/29/23 05/12/23 05/11/23 History carvedilol 25 mg tablet 25 mg PO BID 04/29/23 05/12/23 05/12/23 History valsartan 160 1 tab PO BID 04/29/23 05/12/23 05/12/23 History mg-hydrochlorothiazide 12.5 mg tablet hydrocodone 10 mg-acetaminophen 1 tab PO Q6H PRN pain #20 tabs 04/30/23 05/12/23 05/11/23 Rx 325 mg tablet acetaminophen 500 mg tablet 1,000 mg PO Q6H PRN Pain 05/12/23 05/12/23 Unknown History amlodipine 10 mg tablet 10 mg PO QAM 05/12/23 05/12/23 05/12/23 History cholecalciferol (vitamin D3) 10 10 mcg PO DAILY 05/12/23 05/12/23 Unknown Hi story mcg (400 unit) tablet (Vitamin D3) citalopram 10 mg tablet 10 mg PO QAM 05/12/23 05/12/23 05/12/23 History clopidogrel 75 mg tablet 75 mg PO QAM 05/12/23 05/12/23 05/12/23 History restarted 05/10/23 finasteride 5 mg tablet 5 mg PO QAM 05/12/23 05/12/23 05/12/23 History furosemide 20 mg tablet 20 mg PO QAM 05/12/23 05/12/23 05/12/23 History glimepiride 2 mg tablet 2 mg PO BEDTIME 05/12/23 05/12/23 05/11/23 History insulin detemir U-100 100 unit/mL See Rx Instructions .Route .COMPLEX 05/12/23 05/12/23 05/11/23 History (3 mL) subcutaneous pen (Levemir FlexPen) potassium chloride 10 mEq 10 meq PO QAM 05/12/23 05/12/23 05/12/23 History tablet,extended release sitagliptin phosphate 100 mg 100 mg PO QAM 05/12/23 05/12/23 05/12/23 History tablet (Januvia) tamsulosin 0.4 mg capsule 0.8 mg PO BEDTIME 05/12/23 05/12/23 05/11/23 History Allergies Allergy/AdvReac Type Severity Reaction Status Date / Time No Known Allergies Allergy Verified 05/12/23 12:22 Current Medications Generic Name Dose Route Start Last Admin Trade Name Freq PRN Reason Stop Dose Admin Tranexamic Acid 1,000 mg/ 110 mls @ 330 mls/hr 05/12/23 12:38 05/12/23 13:09 Sodium Chloride IV Infused Q1H PRN Infusion BLEEDING PFSH Acute PFSH: Medical History BPH loc w urin obs/LUTS Diabetes History of TIA (transient ischemic attack) HTN (hypertension) with goal to be determined Urgency incontinence Urinary incontinence Surgical History Hx of colonoscopy with polypectomy Hx of umbilical hernia repair S/P carpal tunnel release S/P cervical spinal fusion Family History Mother , in her 80's Cancer breast with mets Father , at age 85 Dementia Other Diabetes Hypertension Stroke Social History Smoking and tobacco status: former smoker Alcohol intake: never Marital status: Current occupational status: retired Vitals/I&O/Wt Last Vital Signs Temp 98.2 F 05/12/23 11:13 Pulse 71 05/12/23 11:49 Resp 18 05/12/23 11:49 BP 140/72 05/12/23 11:49 Pulse Ox 96 05/12/23 11:49 O2 Del Method Room Air 05/12/23 11:49 05/11/23 05/12/23 05/12/23 22:59 06:59 14:59 Intake Total 110 / 110 Balance 110 / 110 Weight last 48 hrs Weight 260 lb Data 05/12/23 11:29 05/12/23 11:29 Coding Level of Care Code Acute Code for Chg Fwd Diagnoses
--- NOTE | 2023-05-12 14:45 | PC.NURSE ---
RN AT BEDSIDE, BLEEDING ASSESSED. PATIENT HAS SATURATED THE BED, BRIEF AND ARTEM. MD NOTIFIED AND MD TO REACH OUT TO SURGEON. PATIENT DENIES ANY SYMPTOMS AT THIS TIME.
[2023-05-12 16:01] LABS: Hematocrit 35.4 % (37-53)
--- NOTE | 2023-05-12 16:41 | PC.NURSE ---
RN AT BEDSIDE, BRIEF AND PACKAGE OF 4X4 GAUZE WAS REMOVED ALONG WITH ARTEM, ALL WERE SATURATED WITH BLOOD. PATIENT DENIES ANY SYMPTOMS AT THIS TIME.
--- NOTE | 2023-05-12 16:49 | PM.HP ---
Providers/Chief Complaint Primary Care Provider: Wali Elena MD Chief Complaint: rectal bleeding History of Present Illness Rishi Fuentes is a 78 year old male who underwent hemorrhoidectomy 12 days ago and presents to the hospital today with rectal bleeding. He started taking his Plavix again yesterday and today has had significant bright red blood per rectum. He still has postoperative pain which is improving. Denies any other new symptoms. Denies any lightheadedness, weakness or dizziness. Review of Systems General: Reports: 10 or more systems reviewed and unremarkable except in HPI and below Medications/Allergies Home Medications Medication Instructions Recorded Confirmed Last Taken Type metformin 500 mg tablet 500 mg PO BID #180 tabs 07/21/22 05/12/23 05/12/23 Rx famotidine 40 mg tablet 40 mg PO DAILY #90 tabs 10/01/22 05/12/23 05/12/23 Rx pen needle, diabetic 31 gauge x #100 ea 12/09/22 05/12/23 04/29/23 Rx 5/16 (BD Ultra-Fine Short Pen Needle) docusate sodium 100 mg capsule 100 mg PO BID #14 caps 03/30/23 05/12/23 05/12/23 Rx (Colace) alprazolam 0.5 mg tablet 0.5 mg PO TID PRN anxiety #90 tabs 04/21/23 05/12/23 04/30/23 Rx atorvastatin 20 mg tablet 20 mg PO BEDTIME 04/29/23 05/12/23 05/11/23 History carvedilol 25 mg tablet 25 mg PO BID 04/29/23 05/12/23 05/12/23 History valsartan 160 1 tab PO BID 04/29/23 05/12/23 05/12/23 History mg-hydrochlorothiazide 12.5 mg tablet hydrocodone 10 mg-acetaminophen 1 tab PO Q6H PRN pain #20 tabs 04/30/23 05/12/23 05/11/23 Rx 325 mg tablet acetaminophen 500 mg tablet 1,000 mg PO Q6H PRN Pain 05/12/23 05/12/23 Unknown History amlodipine 10 mg tablet 10 mg PO QAM 05/12/23 05/12/23 05/12/23 History cholecalciferol (vitamin D3) 10 10 mcg PO DAILY 05/12/23 05/12/23 Unknown History mcg (400 unit) tablet (Vitamin D3) citalopram 10 mg tablet 10 mg PO QAM 05/12/23 05/12/23 05/12/23 History clopidogrel 75 mg tablet 75 mg PO QAM 05/12/23 05/12/23 05/12/23 History restarted 05/10/23 finasteride 5 mg tablet 5 mg PO QAM 05/12/23 05/12/23 05/12/23 History furosemide 20 mg tablet 20 mg PO QAM 05/12/23 05/12/23 05/12/23 History glimepiride 2 mg tablet 2 mg PO BEDTIME 05/12/23 05/12/23 05/11/23 History insulin detemir U-100 100 unit/mL See Rx Instructions .Route .COMPLEX 05/12/23 05/12/23 05/11/23 History (3 mL) subcutaneous pen (Levemir FlexPen) potassium chloride 10 mEq 10 meq PO QAM 05/12/23 05/12/23 05/12/23 History tablet,extended release sitagliptin phosphate 100 mg 100 mg PO QAM 05/12/23 05/12/23 05/12/23 History tablet (Januvia) tamsulosin 0.4 mg capsule 0.8 mg PO BEDTIME 05/12/23 05/12/23 05/11/23 History Allergies Allergy/AdvReac Type Severity Reaction Status Date / Time No Known Allergies Allergy Verified 05/12/23 12:22 PFSH Acute PFSH: Medical History (Updated 05/12/23 @ 16:51 by Tyrese Tsang DO) BPH loc w urin obs/LUTS Diabetes History of TIA (transient ischemic attack) HTN (hypertension) with goal to be determined Urgency incontinence Urinary incontinence Surgical History (Updated 05/12/23 @ 16:51 by Tyrese Tsang DO) Hx of colonoscopy with polypectomy Hx of umbilical hernia repair S/P carpal tunnel release S/P cervical spinal fusion Status post hemorrhoidectomy Family History Mother , in her 80's Cancer breast with mets Father , at age 85 Dementia Other Diabetes Hypertension Stroke Social History Smoking and tobacco status: former smoker Alcohol intake: never Marital status: Current occupational status: retired Vitals/I&O/Wt Last Vital Signs Temp 98.2 F 05/12/23 11:13 Pulse 73 05/12/23 16:43 Resp 16 05/12/23 16:43 BP 169/71 05/12/23 16:43 Pulse Ox 96 05/12/23 16:43 O2 Del Method Room Air 05/12/23 11:49 05/12/23 05/12/23 05/12/23 06:59 14:59 22:59 Intake Total 220 / 220 Balance 220 / 220 Weight last 48 hrs Weight 260 lb Physical Exam Narrative: General : Patient is well developed , no acute distress, oriented x3 Head : Normal cephalic, a-traumatic. Ears : Pinnae and external canal are normal. Hearing is normal. Eyes : PERRLA, Sclera and injection are normal. No conjunctival discharge. Nose : Mucous membranes are without erythema. Throat : buccal mucosa is normal, gums are without significant recession or hypertrophy. Lungs : Equal chest rise bilaterally, no use of accessory muscles, trachea is midline. Cor : Rate and rhythm are normal. Abdomen : Soft, ND, NT, no g/r/m Rectal: There is bright red blood coming from his rectum Extremities : No edema, no cyanosis or clubbing, dorsalis pedis pulses are present bilaterally, non-tender to palpation of calves. Upper extremities are normal bilaterally. Back : non-tender to palpation, no CVA tenderness. Neuro : CN II - XII intact, Upper and lower extremities have equal and full strength Data 05/12/23 15:51 05/12/23 11:29 A&P Assessment and plan (1) Status post hemorrhoidectomy: (2) Lower gastrointestinal hemorrhage: (3) History of TIA (transient ischemic attack): Plan Tranexamic acid 1 mg every hours x2 was given. Patient continues to have bleeding and is very concerned. He would like to be kept in the hospital overnight. We will accommodate. Regular diet A.m. labs See orders Attestations Medical Necessity Statement*: Patient requires at least 1 night in the hospital for observation for lower GI bleed Coding Level of Care Code 60593 Diagnoses Status post hemorrhoidectomy Z98.890; Z87.19 Lower gastrointestinal hemorrhage K92.2 History of TIA (transient ischemic attack) Z86.73
[2023-05-12] MEDS: D5-NS 0.45% + KCL 20 mEq 20 MEQ/1,000 ML BAG 75 MEQ IV (17:45)
--- NOTE | 2023-05-12 18:19 | PC.NURSE ---
CHUCKS, BRIEF AND 4X4'S ALL CHANGED AT THIS TIME DUE TO THEM BEING SATURATED. PATIENT DENIES ANY SYMPTOMS AT THIS TIME.
[2023-05-13] VITALS: BP 128/69; PULSE 84; RESP 16; TEMP 36.4; O2SAT 95
[2023-05-13 04:59] LABS: Basophils # 0.1 10^3/uL (0.0-0.1); Basophils % 0.8 %; Eosinophils # 0.2 10^3/uL (0.0-0.8); Eosinophils % 3.4 %; Hematocrit 34.4 % (37-53); Lymphocytes % 31.3 %; Mean Corpuscular HGB Conc 33.1 g/dL (30-55); Mean Corpuscular Hemoglobin 29.8 pg (27-33); Mean Corpuscular Volume 89.8 fl (82-101); Mean Platelet Volume 9.7 fL (7.4-10.4); Monocytes # 0.6 10^3/uL (0.2-0.9); Monocytes % 9.4 %; Neutrophils # 3.56 10^3/uL (1.8-7.7); Neutrophils % 54.6 %; Nucleated Red Blood Cells % 0 %; Platelet Count 242 10^3/cmm (157-399); Red Blood Count 3.83 10^6/uL (3.85-5.65); Red Cell Distribution Width 13.4 % (12.1-15.1); White Blood Count 6.51 10^3/uL (3.29-11.43)
[2023-05-13 05:00] VITALS: BP 158/74; PULSE 86; RESP 19; TEMP 36.4; O2SAT 95
[2023-05-13 05:22] LABS: Anion Gap 13.2 (5-19); Blood Urea Nitrogen 29 mg/dL (8-23); Carbon Dioxide 25 mmol/L (22-29); Chloride 104 mmol/L (98-107); Glucose 159 mg/dL (65-115); Magnesium 1.9 mg/dL (1.7-2.3); Osmolality Calculated 295 mOsm/kg (285-295); Potassium 4.2 mmol/L (3.5-5.1); Sodium 138 mmol/L (136-145)
--- NOTE | 2023-05-13 05:41 | PC.NURSE ---
Pt still having bright red blood for bowel movements,Pts briefs changed and no pain reported.
[2023-05-13] MEDS: D5-NS 0.45% + KCL 20 mEq 20 MEQ/1,000 ML BAG 75 MEQ IV (06:15)
[2023-05-13 06:53] LABS: Glucose Point of Care 214 mg/dL (70-110)
[2023-05-13 08:00] VITALS: BP 157/72; PULSE 73; RESP 18; TEMP 36.5; O2SAT 97
[2023-05-13] MEDS: pantoprazole DR 40 mg Tablet PO (08:27)
[2023-05-13] MEDS: ALPRAZolam 0.5 mg Tablet PO ×2 (09:42→20:29)
--- NOTE | 2023-05-13 10:51 | PC.NURSE ---
Patient brief is soaked with bright red blood. Blood also soaking chris underneath pt. Large clots noted. This is the second time this has occurred this am. Dr. Tsang contacted this time by this nurse. States he is finishing up in surgery and then he will be coming up to see pt.
--- NOTE | 2023-05-13 11:12 | PC.CHAP ---
Pastoral Care Encounter/Spiritual Assessment Type of Contact [] Declined labor/excavator visit [] Patient/Family/Request visit [] Outpatient visit [] Follow-up visit [] Physician referral [] Code/Alert [x] Routine visit [] Staff referral [] Actively dying [] Patient sleeping [x] Family support [] [] Out of room [] Palliative care [] [] Receiving care in room [] Pre-surgical visit [] Trauma [] Long length of stay [] ICU visit [] Other: Relational/Emotional Strength [x] Patient feels connected with others/family/visitors/staff [] Distress [] Loneliness/isolation [] Abandonment Spirituality of Patient [] Person of Rosanne [] Attends Jew of their Rosanne [x] Believes in Prayer [] Reads Bible or Episcopal materials [] There are Spiritual issues to be addressed Spa Concierge Interventions [x] Prayer [x] Active listening [] Non-anxious presence [] Spiritual/emotional support [] Crisis/trauma care [] Spiritual counseling [] Bereavement support [] Provided bereavement packet [] Provided Bible/devotional materials [] Provided toy/stuffed animal, coloring book to patient or family member [] Provided Communion [] Anointing/[place] [] Salvation [] Completed spiritual assessment [] Other: Impact on Illness or Injury [] Angry [] Fearful [] Anxious [] Often cries [] Exhaustion [] Unable to work [] Unable to attend druze [] Unable to walk/stand [] Unable to read [] Unable to drive [] Unable to eat/drink [] Unable to sleep [] Unable to be with family [] Patient intubated [] Other: Summary 10 min Time spent with patient
[2023-05-13 11:25] LABS: Glucose Point of Care 232 mg/dL (70-110)
[2023-05-13] MEDS: insulin lispro 100 unit/1 mL SUBCUT ×3 (11:40→20:27)
[2023-05-13 11:59] VITALS: BP 158/69; PULSE 86; RESP 20; TEMP 36.4; O2SAT 96
--- NOTE | 2023-05-13 13:09 | PM.PN ---
Subjective Subjective: Patient continues to have bright red blood per rectum and rectal pain after hemorrhoidectomy Vitals/I&O/Wt Last Vital Signs Temp 97.5 F L 05/13/23 11:59 Pulse 86 05/13/23 11:59 Resp 20 H 05/13/23 11:59 BP 158/69 05/13/23 11:59 Pulse Ox 96 05/13/23 11:59 O2 Del Method Room Air 05/13/23 11:59 05/12/23 05/13/23 05/13/23 22:59 06:59 14:59 Intake Total 120 / 340 937.5 / 1277.5 480 / 480 Balance 120 / 340 937.5 / 1277.5 480 / 480 Weight last 48 hrs Weight 260 lb Physical Exam Narrative: General: No acute distress, awake alert and oriented x3 Rectal: No sign of recurrent hemorrhoids, there is bright red blood soaking through his garments but I do not see any active bleeding at this time Data 05/13/23 04:48 05/13/23 04:48 A&P Assessment and plan (1) Status post hemorrhoidectomy: (2) Lower gastrointestinal hemorrhage: Plan Postoperative day #13 status post hemorrhoidectomy with postoperative bleeding after restarting Plavix Hemoglobin has been stable and vitals are within normal limits Repeat H&H I placed thrombin-soaked Gelfoam into the anus We will reassess in the afternoon Attestations Medical Necessity Statement*: We will reassess this afternoon. If patient continues to bleed significantly he will need 1 more night in the hospital for observation Coding Level of Care Code 51343 Diagnoses Status post hemorrhoidectomy Z98.890; Z87.19 Lower gastrointestinal hemorrhage K92.2
[2023-05-13 13:35] LABS: Hematocrit 28.1 % (37-53)
[2023-05-13 16:31] LABS: Glucose Point of Care 226 mg/dL (70-110)
[2023-05-13 16:40] VITALS: BP 169/69; PULSE 84; RESP 17; TEMP 36.6; O2SAT 95
[2023-05-13 19:27] VITALS: BP 140/66; PULSE 84; RESP 18; TEMP 37.4; O2SAT 95
[2023-05-13 20:00] LABS: Glucose Point of Care 272 mg/dL (70-110)
[2023-05-14] VITALS: BP 129/73; PULSE 84; RESP 16; TEMP 37.2; O2SAT 98
[2023-05-14 04:44] VITALS: BP 129/77; PULSE 88; RESP 16; TEMP 37.2; O2SAT 96
--- NOTE | 2023-05-14 04:45 | PC.NURSE ---
pt has ambulated to bathroom on him own
[2023-05-14 05:14] LABS: Basophils % 0.6 %; Eosinophils # 0.1 10^3/uL (0.0-0.8); Hematocrit 25.9 % (37-53); Lymphocytes # 2.2 10^3/uL (0.8-4.8); Lymphocytes % 32.4 %; Mean Corpuscular HGB Conc 32.4 g/dL (30-55); Mean Corpuscular Hemoglobin 29.5 pg (27-33); Mean Corpuscular Volume 90.9 fl (82-101); Mean Platelet Volume 10.1 fL (7.4-10.4); Monocytes # 0.5 10^3/uL (0.2-0.9); Monocytes % 7.8 %; Neutrophils # 3.87 10^3/uL (1.8-7.7); Neutrophils % 56.6 %; Nucleated Red Blood Cells % 0 %; Platelet Count 223 10^3/cmm (157-399); Red Blood Count 2.85 10^6/uL (3.85-5.65); Red Cell Distribution Width 13.6 % (12.1-15.1); White Blood Count 6.83 10^3/uL (3.29-11.43)
[2023-05-14 05:38] LABS: Anion Gap 11.9 (5-19); Blood Urea Nitrogen 23 mg/dL (8-23); Calcium 8.2 mg/dL (8.5-10.5); Carbon Dioxide 24 mmol/L (22-29); Chloride 103 mmol/L (98-107); Glucose 153 mg/dL (65-115); Magnesium 1.8 mg/dL (1.7-2.3); Osmolality Calculated 287 mOsm/kg (285-295); Potassium 3.9 mmol/L (3.5-5.1); Sodium 135 mmol/L (136-145)
[2023-05-14 06:19] LABS: Glucose Point of Care 221 mg/dL (70-110)
[2023-05-14 07:39] VITALS: BP 173/81; PULSE 77; RESP 18; TEMP 36.9; O2SAT 96
[2023-05-14] MEDS: insulin lispro 100 unit/1 mL SUBCUT ×2 (08:07→11:52)
[2023-05-14] MEDS: pantoprazole DR 40 mg Tablet PO (08:08)
[2023-05-14 11:22] VITALS: BP 142/71; PULSE 86; RESP 18; TEMP 36.5; O2SAT 97
[2023-05-14 11:44] LABS: Glucose Point of Care 218 mg/dL (70-110)
--- NOTE | 2023-05-14 13:58 | P.DS_ITS ---
Discharge Providers Date of Admission: 05/12/23 16:52 Date of Discharge: May 14, 2023 Attending Provider at Admission: Tyrese Tsang DO Attending Provider at Discharge: Tyrese Tsang DO Primary Care Provider: Wali Elena MD Diagnoses at Discharge Discharge Diagnosis (1) Status post hemorrhoidectomy: Status: Acute (2) Lower gastrointestinal hemorrhage: Status: Acute Reason for Visit Reason for Visit: rectal bleeding Hospital Course Hospital Course This very pleasant 72-year-old gentleman who came into the hospital on postoperative day 12 following hemorrhoidectomy. He had restarted his Plavix and was having rectal bleeding. He was held for observation. The bleeding stopped and his hemoglobin was stable prior to discharge. Physical Exam Narrative: General : Patient is well developed , no acute distress, oriented x3 Head : Normal cephalic, a-traumatic. Ears : Pinnae and external canal are normal. Hearing is normal. Eyes : PERRLA, Sclera and injection are normal. No conjunctival discharge. Nose : Mucous membranes are without erythema. Throat : buccal mucosa is normal, gums are without significant recession or hypertrophy. Lungs : Equal chest rise bilaterally, no use of accessory muscles, trachea is midline. Cor : Rate and rhythm are normal. Abdomen : Soft, ND, NT, no g/r/m Extremities : No edema, no cyanosis or clubbing, dorsalis pedis pulses are present bilaterally, non-tender to palpation of calves. Upper extremities are normal bilaterally. Back : non-tender to palpation, no CVA tenderness. Neuro : CN II - XII intact, Upper and lower extremities have equal and full strength Discharge Data Studies Completed and Pending Pending at discharge Category Date Time Status Basic Metabolic Panel AM LABS Lab 05/15/23 04:00 Ordered Complete Blood Count w/Auto AM LABS Lab 05/15/23 04:00 Ordered Magnesium AM LABS Lab 05/15/23 04:00 Ordered Laboratory Results WBC 6.83 10^3/uL (3.29-11.43) 05/14/23 04:22 RBC 2.85 10^6/uL (3.85-5.65) L 05/14/23 04:22 Hgb 8.40 g/dL (11.27-16.99) L 05/14/23 04:22 Hct 25.9 % (37-53) L 05/14/23 04:22 MCV 90.9 fl (82-101) 05/14/23 04:22 MCH 29.5 pg (27-33) 05/14/23 04:22 MCHC 32.4 g/dL (30-55) 05/14/23 04:22 RDW 13.6 % (12.1-15.1) 05/14/23 04:22 Plt Count 223 10^3/cmm (157-399) 05/14/23 04:22 MPV 10.1 fL (7.4-10.4) 05/14/23 04:22 Neut % (Auto) 56.6 % 05/14/23 04:22 Lymph % (Auto) 32.4 % 05/14/23 04:22 [place] % (Auto) 7.8 % 05/14/23 04:22 Eos % (Auto) 2.0 % 05/14/23 04:22 Baso % (Auto) 0.6 % 05/14/23 04:22 Neut # (Auto) 3.87 10^3/uL (1.8-7.7) 05/14/23 04:22 Lymph # (Auto) 2.2 10^3/uL (0.8-4.8) 05/14/23 04:22 [place]ville # (Auto) 0.5 10^3/uL (0.2-0.9) 05/14/23 04:22 Eos # (Auto) 0.1 10^3/uL (0.0-0.8) 05/14/23 04:22 Baso # (Auto) 0.0 10^3/uL (0.0-0.1) 05/14/23 04:22 Nucleated RBC % (auto) 0 % 05/14/23 04:22 Nucleated RBCs # 0.0 /100WBC 05/14/23 04:22 PT 13.60 SECONDS (12.1-14.9) 05/12/23 11:29 INR 1.01 (0.8-1.2) 05/12/23 11:29 Sodium 135 mmol/L (136-145) L 05/14/23 04:22 Potassium 3.9 mmol/L (3.5-5.1) 05/14/23 04:22 Chloride 103 mmol/L (98-107) 05/14/23 04:22 Carbon Dioxide 24 mmol/L (22-29) 05/14/23 04:22 Anion Gap 11.9 (5-19) 05/14/23 04:22 BUN 23 mg/dL (8-23) 05/14/23 04:22 Creatinine 1.0 mg/dL (0.7-1.2) 05/14/23 04:22 GFR Calculation Not Reportable 05/14/23 04:22 Glucose 153 mg/dL (65-115) H 05/14/23 04:22 POC Glucose 218 mg/dL (70-110) H 05/14/23 11:39 Calculated Osmolality 287 mOsm/kg (285-295) 05/14/23 04:22 Calcium 8.2 mg/dL (8.5-10.5) L 05/14/23 04:22 Magnesium 1.8 mg/dL (1.7-2.3) 05/14/23 04:22 Total Bilirubin 0.3 mg/dL (0.15-1.2) 05/12/23 11:29 AST 11 U/L (0-40) 05/12/23 11:29 ALT 19 U/L (0-41) 05/12/23 11:29 Alkaline Phosphatase 92 U/L (40-130) 05/12/23 11:29 Total Protein 6.9 g/dL (6.6-8.7) 05/12/23 11:29 Albumin 4.0 g/dL (3.5-5.2) 05/12/23 11:29 Globulin 2.9 g/dL (1.3-4.6) 05/12/23 11:29 Blood Type O Positive 05/12/23 11:29 Rho(D) Type Positive 05/12/23 11:29 Antibody Screen Negative 05/12/23 11:29 Procedures Performed None Vitals Last Vital Signs Temp 97.7 F 05/14/23 11:22 Pulse 86 05/14/23 11:22 Resp 18 05/14/23 11:22 BP 142/71 05/14/23 11:22 Pulse Ox 97 05/14/23 11:22 O2 Del Method Room Air 05/14/23 11:22 Discharge Plan Discharge Patient Disposition: Home Condition: Stable Prescriptions: Continued famotidine 40 mg tablet 40 mg PO DAILY Qty: 90 3RF metformin 500 mg tablet 500 mg PO BID Qty: 180 3RF (DME) pen needle, diabetic [BD Ultra-Fine Short Pen Needle] 31 gauge x 5/16 needle See Rx Instructions .Route Qty: 100 6RF Rx Instructions: As directed alprazolam 0.5 mg tablet 0.5 mg PO TID PRN (Reason: anxiety) Qty: 90 2RF docusate sodium [Colace] 100 mg capsule 100 mg PO BID Qty: 14 0RF carvedilol 25 mg tablet 25 mg PO BID atorvastatin 20 mg tablet 20 mg PO BEDTIME valsartan-hydrochlorothiazide 160-12.5 mg tablet 1 tab PO BID hydrocodone-acetaminophen 10-325 mg tablet 1 tab PO Q6H PRN (Reason: pain) Qty: 20 0RF acetaminophen 500 mg Tablet 1,000 mg PO Q6H PRN (Reason: Pain) Vitamin D3 10 mcg (400 unit) Tablet 10 mcg PO DAILY Levemir FlexPen 100 unit/mL (3 mL) insulin pen See Rx Instructions .ROUTE .COMPLEX Rx Instructions: 80 units subcutaneously in the am and 40 units in the pm citalopram 10 mg tablet 10 mg PO QAM potassium chloride 10 mEq tablet extended release 10 meq PO QAM glimepiride 2 mg tablet 2 mg PO BEDTIME tamsulosin 0.4 mg capsule 0.8 mg PO BEDTIME amlodipine 10 mg tablet 10 mg PO QAM furosemide 20 mg tablet 20 mg PO QAM finasteride 5 mg tablet 5 mg PO QAM Januvia 100 mg tablet 100 mg PO QAM Held clopidogrel 75 mg tablet 75 mg PO QAM Hold Instructions: Resume on 05/21/23. Discharge Orders: Discharge Order (Routine); Ordered 05/14/23 Ordered By: Tyrese Tsang Referrals: Tyrese Tsang DO [Physician] - 1 week Wali Elena MD [Primary Care Provider] - 4-7 days Discharge Diet: Advance as tolerated Discharge Activity: Resume usual activity Patient Instructions: Gastrointestinal Bleeding (ED), Opioid Safety Activity Restrictions/Additional Instructions: Sitz bath's 3 times daily and after bowel movements Discharge Attestations Time Spent in Discharge Care*: less than 30 min Quality Metrics Clinical Quality Measures [ No reported AMI, CVA or VTE this stay] Coding Level of Care Code Acute Code for Chg Fwd Diagnoses Status post hemorrhoidectomy Z98.890; Z87.19 Lower gastrointestinal hemorrhage K92.2
[2023-05-14 15:00] VITALS: BP 142/71; PULSE 86; RESP 18; TEMP 36.5; O2SAT 97
--- NOTE | 2023-05-14 15:31 | PC.NURSE ---
1500- Discharge instructions given to patient and family with no questions or concerns voiced at this time. Belongings and patient wheeled via wheelchair to private vehicle.
== END 2023-05-14 15:00 | disposition home or self-care (01) ==
LOC: ER 16:50 → MEDSURG 17:49
PROVIDERS: Admitting Provider Surgery; Emergency Provider Emergency Medicine; PCP Family Medicine; Visit Provider Surgery
DX: K92.2 Gastrointestinal hemorrhage, unspecified (principal); Z98.890 Other specified postprocedural states; Z87.19 Personal history of other diseases of the digestive system; N40.1 Benign prostatic hyperplasia with lower urinary tract symptoms; N13.8 Other obstructive and reflux uropathy; E11.9 Type 2 diabetes mellitus without complications; Z79.84 Long term (current) use of oral hypoglycemic drugs; Z79.4 Long term (current) use of insulin; I10 Essential (primary) hypertension; Z86.73 Personal history of transient ischemic attack (TIA), and cerebral infarction without residual deficits; Z87.891 Personal history of nicotine dependence
CPT/HCPCS: 36415; 36416; 80048; 80053; 82962; 83735; 85014; 85018; 85025; 85610; 86850; 86900; 96365; 96366; 96367; 96372; 99285; G0378; J1815

== ENCOUNTER → 2023-05-18 15:41 | Outpatient (BNVA) | payer MEDICARE, SELFPAY | PROVIDERS: PCP Family Medicine; Visit Provider Family Medicine | DX: E53.8 Deficiency of other specified B group vitamins (principal); Z51.81 Encounter for therapeutic drug level monitoring; K92.1 Melena; D64.9 Anemia, unspecified; N39.41 Urge incontinence; R30.0 Dysuria | CPT/HCPCS: 81000; 82607; 83550; 84466; 85025; 87086 ==

== ENCOUNTER → 2023-05-19 08:19 | Outpatient (BNVA) | payer MEDICARE, SELFPAY | PROVIDERS: PCP Family Medicine; Visit Provider Surgery | DX: Z98.890 Other specified postprocedural states (principal); Z87.19 Personal history of other diseases of the digestive system | CPT/HCPCS: 99024 ==

== ENCOUNTER → 2023-06-11 09:57 | Outpatient (BNVA) | payer MEDICARE, SELFPAY | PROVIDERS: PCP Family Medicine | DX: Z51.81 Encounter for therapeutic drug level monitoring (principal); E11.9 Type 2 diabetes mellitus without complications; E55.9 Vitamin D deficiency, unspecified; N40.1 Benign prostatic hyperplasia with lower urinary tract symptoms; Z12.5 Encounter for screening for malignant neoplasm of prostate; D64.9 Anemia, unspecified; I10 Essential (primary) hypertension | CPT/HCPCS: 80053; 82306; 83036; 84153; 85025 ==

== ENCOUNTER → 2023-06-30 09:24 | Outpatient (BNVA) | payer MEDICARE, SELFPAY | PROVIDERS: PCP Family Medicine; Visit Provider Podiatrist Foot & Ankle Surgery | DX: I73.9 Peripheral vascular disease, unspecified (principal); E11.9 Type 2 diabetes mellitus without complications; L60.3 Nail dystrophy; Z79.4 Long term (current) use of insulin; Z79.84 Long term (current) use of oral hypoglycemic drugs | CPT/HCPCS: 11721; 99203 ==

== ENCOUNTER → 2023-07-20 14:08 | Outpatient (BNVA) | payer MEDICARE, SELFPAY | PROVIDERS: PCP Family Medicine; Visit Provider Internal Medicine | DX: E11.9 Type 2 diabetes mellitus without complications (principal); I10 Essential (primary) hypertension; Z87.891 Personal history of nicotine dependence; Z79.4 Long term (current) use of insulin | CPT/HCPCS: 99214 ==

== ENCOUNTER → 2023-09-16 10:02 | Outpatient (BNVA) | payer MEDICARE, SELFPAY | PROVIDERS: PCP Family Medicine; Visit Provider Family Medicine | DX: Z51.81 Encounter for therapeutic drug level monitoring (principal); Z13.220 Encounter for screening for lipoid disorders; E11.9 Type 2 diabetes mellitus without complications; E55.9 Vitamin D deficiency, unspecified | CPT/HCPCS: 80053; 80061; 82306; 83036; 85025 ==

== ENCOUNTER → 2023-10-27 11:14 | Outpatient (BNVA) | payer MEDICARE, SELFPAY | PROVIDERS: PCP Family Medicine; Visit Provider Podiatrist Foot & Ankle Surgery | DX: I73.9 Peripheral vascular disease, unspecified (principal); E11.69 Type 2 diabetes mellitus with other specified complication; L60.3 Nail dystrophy; Z79.4 Long term (current) use of insulin; Z79.84 Long term (current) use of oral hypoglycemic drugs | CPT/HCPCS: 11721 ==

== ENCOUNTER → 2023-12-30 13:32 | Outpatient (BNVA) | payer MEDICARE, SELFPAY | PROVIDERS: PCP Family Medicine; Visit Provider Family Medicine | DX: E11.9 Type 2 diabetes mellitus without complications (principal); Z51.81 Encounter for therapeutic drug level monitoring; E55.9 Vitamin D deficiency, unspecified | CPT/HCPCS: 80053; 82306; 83036; 85025 ==

== ENCOUNTER → 2024-01-13 14:31 | Outpatient (BNVA) | payer MEDICARE, SELFPAY | PROVIDERS: PCP Family Medicine; Visit Provider Podiatrist Foot & Ankle Surgery | DX: I73.9 Peripheral vascular disease, unspecified (principal); E11.69 Type 2 diabetes mellitus with other specified complication; L60.3 Nail dystrophy; Z79.4 Long term (current) use of insulin; Z79.84 Long term (current) use of oral hypoglycemic drugs | CPT/HCPCS: 11721 ==

== ENCOUNTER → 2024-04-05 12:45 | Outpatient (BNVA) | payer MEDICARE, SELFPAY | PROVIDERS: PCP Family Medicine; Visit Provider Internal Medicine Cardiovascular Disease | DX: R07.2 Precordial pain (principal); R06.02 Shortness of breath; I10 Essential (primary) hypertension; Z87.891 Personal history of nicotine dependence | CPT/HCPCS: 99214 ==

== ENCOUNTER → 2024-04-20 14:23 | Outpatient (BNVA) | payer MEDICARE, SELFPAY | PROVIDERS: PCP Family Medicine; Visit Provider Podiatrist Foot & Ankle Surgery | DX: I73.9 Peripheral vascular disease, unspecified (principal); E11.69 Type 2 diabetes mellitus with other specified complication; L60.3 Nail dystrophy; Z79.4 Long term (current) use of insulin; Z79.84 Long term (current) use of oral hypoglycemic drugs | CPT/HCPCS: 11721 ==

== ENCOUNTER → 2024-04-27 10:53 | Outpatient (BNVA) | payer MEDICARE, SELFPAY | PROVIDERS: PCP Family Medicine; Visit Provider Family Medicine | DX: Z51.81 Encounter for therapeutic drug level monitoring (principal); Z13.220 Encounter for screening for lipoid disorders; E55.9 Vitamin D deficiency, unspecified; E11.9 Type 2 diabetes mellitus without complications; N40.1 Benign prostatic hyperplasia with lower urinary tract symptoms; E53.8 Deficiency of other specified B group vitamins | CPT/HCPCS: 80053; 80061; 82306; 82607; 83036; 84153; 85025 ==

== ENCOUNTER 2024-05-05 10:36 | Outpatient (CLI) | payer MEDICARE, SELFPAY ==
[2024-05-05 10:51] VITALS: BMI 34.8
--- NOTE | 2024-05-05 10:52 | ECG_ITS ---
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 Interpretive Statements LEXISCAN SESTAMIBI STRESS TEST Procedure: At the baseline, the blood pressure was 148/78 mmHg with a heart rate of 68 bpm. The electrocardiogram showed normal sinus rhythm, normal axis with normal ST and T's. The Lexiscan was infused over a period of 20 seconds. A total of 0.4 mg of Lexiscan was infused. The stress phase was continued for a total of 5 minutes. Heart rate was at the end of stress phase was 85 bpm and a blood pressure of 140/75 mmHg. The EKG at the peak infusion revealed normal sinus rhythm with no significant ST-T wave changes. Sestamibi was injected 20 seconds after the Lexiscan infusion. Blood pressure at the end of recovery phase was 144/75 mmHg with a heart rate of 80 bpm. Conclusion: 1. Normal EKG response to Lexiscan infusion 2. No Lexiscan induced chest pain or cardiac arrhythmia. 3. Normal blood pressure and heart rate response. 4. Sestamibi/sestamibi perfusion scan pending; see separate report. Electronically Signed On 05-13-2024 21:32:09 CDT by Moody Pearl M.D. [id number]
--- NOTE | 2024-05-05 10:53 | NMCV_ITS ---
NM katina perf SPECT r/s* [id number] Rishi Fuentes Age: 79 Gender: M : 1945 Exam Date: 05/05/2024 10:53 Ordering Phys: Allison Bernstein MD ([email or web address]) Technologist: BARRERA Jennings Exam Location: [facility] Indications: CP STRESS TEST Please see separate stress test report in [facility] for full findings IMAGE PROTOCOL Rest/Stress 1 Lexiscan Day Radiopharmaceutical Dose (mCi) Administration Site Administered by Rest: Tc-99m 10.6 IV BARRERA Jennings Sestamibi Stress:Tc-99m 32.7 IV BARRERA Jennings Sestamibi Rest: 05-May-2024 60 Discovery 630 Stress: 05-May-2024 30 Discovery 630 0.4mg Lexiscan. Supine position only as patient was unable to lay prone. SPECT RESULTS Technical Quality: Good Raw Data Analysis: Adequate Image Corrections: No attenuation or motion correction applied Summed Stress Score: 2 Summed Rest Score: 2 Summed Difference Score: 0 PERFUSION FINDINGS Small area of fixed perfusion defect noted in the distal lateral wall suggestive of old myocardial infarction versus scarring FUNCTIONAL RESULTS (calculated via Gated SPECT) Stress Image LV EF (%): 61 Stress EDV (mL):151 TID: 1.11 Stress ESV (mL):59 FUNCTIONAL FINDINGS: There is normal left ventricular systolic function. IMPRESSIONS This study is negative for ischemia, small area of old myocardial infarction versus scarring noted in the distal lateral wall, there is no wall motion abnormality, left leg ejection fraction appeared to be normal. TID ratio was elevated which could be due to left ventricle hypertrophy. Allison Bernstein MD (Electronically Signed) Final Date: 06 May 2024 20:07 S
[2024-05-05] MEDS: regadenoson 0.4 Mg/5 ml Syringe IVP (12:45)
[2024-05-05 13:18] VITALS: BP 123/68; PULSE 62
== END 2024-05-05 10:37 | disposition home or self-care (01) ==
PROVIDERS: PCP Family Medicine; Visit Provider Internal Medicine Cardiovascular Disease
DX: R07.9 Chest pain, unspecified (principal); R06.02 Shortness of breath
CPT/HCPCS: 36415; 78452; 93017; 96374; A9500; J2785

== ENCOUNTER 2024-05-13 07:45 | Outpatient (CLI) | payer MEDICARE, SELFPAY ==
--- NOTE | 2024-05-13 07:45 | USCV_ITS ---
Rishi Fuentes Age: 79 Gender: M : 1945 Exam Date: 05/13/2024 08:11 Ordering Phys: Allison Bernstein MD ([email or web address]) Technologist: Bryan Ibarra Exam Location: [facility] [place] Indication: BP: 122 / 65 HR: 61 Rhythm: Sinus Technical Quality: Adequate MEASUREMENTS (Male / Female) Normal Values 2D ECHO LVOT Diameter 2.2 cm LV Ejection Fraction MOD 4C 41.5 % LV Ejection Fraction MOD 2C 71.4 % LV Ejection Fraction 2C AL 71.4 % LA Diameter 5.0 cm RA Systolic Volume 4C AL 49.9 ml RA Systolic Volume 4C MOD 49.2 ml LA Sys Volume AL 42.3 cm cubed LA Sys Volume Index AL 17.6 cm cubed/m squared Aorta at Sinotubular Diameter 2.5 cm IVC Diameter 2.0 cm M-MODE LA Ao Ratio MM 1.3 AV Cusp Separation MM 2.4 cm DOPPLER AV Peak Velocity 151.0 cm/s LVOT Peak Velocity 98.0 cm/s AV Area Cont Eq vti 2.7 cm squared AV Area Cont Eq pk 2.5 cm squared MV Area PHT 3.4 cm squared Mitral E to A Ratio 1.0 TR Peak Velocity 296.0 cm/s TR Peak Gradient 35.0 mmHg TV Peak E Velocity 66.0 cm/s Right Atrial Pressure 3.0 mmHg Pulmonary Artery Systolic Pressu 38.0 mmHg PV Peak Velocity 93.0 cm/s FINDINGS Left Ventricle Normal left ventricular size, systolic function and wall thickness, with no regional wall motion abnormalities. Left ventricular ejection fraction is estimated at 55 %. Grade II/IV diastolic dysfunction, moderately elevated filling pressures. Right Ventricle The right ventricle is normal in size and function. Right Atrium The right atrium is normal in size. Left Atrium Mildly increased left atrial size. Mitral Valve Moderately thickened mitral valve. Mild mitral valve regurgitation. Aortic Valve Moderate aortic valve calcification. No aortic valve stenosis. Trace aortic valve regurgitation. Tricuspid Valve Structurally normal tricuspid valve without significant stenosis or regurgitation. Pulmonary artery systolic pressure is normal. Pulmonic Valve Structurally normal pulmonic valve without significant stenosis. There is no pulmonic regurgitation. Pericardium Normal pericardium without effusion. Aorta Normal ascending aorta dimension. IVC The inferior vena cava appears normal. CONCLUSIONS Normal left ventricular size, systolic function and wall thickness, with no regional wall motion abnormalities. Left ventricular ejection fraction is estimated at 55 %. Grade II/IV diastolic dysfunction, moderately elevated filling pressures. Moderately thickened mitral valve. Mild mitral valve regurgitation. Moderate aortic valve calcification. No aortic valve stenosis. Trace aortic valve regurgitation. There is no pericardial effusion. Right atrial pressure is around 5 mm of mercury. Allison Bernstein MD (Electronically Signed) Final Date: 13 May 2024 13:03 S
== END 2024-05-13 07:46 | disposition home or self-care (01) ==
PROVIDERS: PCP Family Medicine; Visit Provider Internal Medicine Cardiovascular Disease
DX: M50.30 Other cervical disc degeneration, unspecified cervical region (principal); I34.81 Nonrheumatic mitral (valve) annulus calcification; I70.0 Atherosclerosis of aorta; R06.02 Shortness of breath
CPT/HCPCS: 93306

== ENCOUNTER 2024-06-11 12:55 | Emergency (ER) | payer MEDICARE, SELFPAY ==
[2024-06-11 13:24] VITALS: BP 132/72; PULSE 74; RESP 16; TEMP 36.6; O2SAT 97
[2024-06-11 14:11] LABS: Basophils % 0.7 %; Eosinophils # 0.2 10^3/uL (0.0-0.8); Eosinophils % 4.1 %; Hematocrit 42.1 % (37-53); Lymphocytes # 1.5 10^3/uL (0.8-4.8); Lymphocytes % 25.9 %; Mean Corpuscular HGB Conc 32.1 g/dL (30-55); Mean Corpuscular Hemoglobin 28.9 pg (27-33); Mean Corpuscular Volume 90.1 fl (82-101); Mean Platelet Volume 9.5 fL (7.4-10.4); Monocytes # 0.4 10^3/uL (0.2-0.9); Monocytes % 6.8 %; Neutrophils # 3.44 10^3/uL (1.8-7.7); Neutrophils % 61.6 %; Nucleated Red Blood Cells % 0 %; Platelet Count 224 10^3/cmm (157-399); Red Blood Count 4.67 10^6/uL (3.85-5.65); Red Cell Distribution Width 13.7 % (12.1-15.1); White Blood Count 5.59 10^3/uL (3.29-11.43)
[2024-06-11 14:16] LABS: Bilirubin Urine Negative (Negative); Blood Urine Negative (Negative); Glucose Urine UA Negative (Normal); Ketones Urine Negative (Negative); Leukocyte Esterase Urine Negative (Negative); Nitrate Urine Negative (Negative); Protein Urine Negative (Negative); Specific Gravity, Urine 1.018 (1.005-1.030); Urine Appearance Clear (CLEAR); Urine Color Yellow (Yellow); pH Urine 5.5 (5-7)
[2024-06-11 14:18] LABS: Add Urine Microscopic? YES; Bacteria Urine None Seen /hpf; Hyaline Casts Urine 0-4 /lpf; RBC Urine 0-2 /hpf (0-2); Squamous Epithelial Cell Urine 0-5 /hpf (0-5); WBC Urine 0-5 /hpf (0-5)
[2024-06-11 14:30] LABS: Alanine Aminotransferase 15 U/L (0-41); Albumin Level 4.4 g/dL (3.5-5.2); Alkaline Phosphatase 87 U/L (40-130); Anion Gap 13.2 (5-19); Aspartate Amino Transferase 11 U/L (0-40); Blood Urea Nitrogen 25 mg/dL (8-23); Calcium 9.1 mg/dL (8.5-10.5); Carbon Dioxide 24 mmol/L (22-29); Chloride 100 mmol/L (98-107); Creatinine Clr Calc Pharmacy 76.7068; Globulin 2.9 g/dL (1.3-4.6); Glucose 156 mg/dL (65-115); Osmolality Calculated 284 mOsm/kg (285-295); Potassium 4.2 mmol/L (3.5-5.1); Sodium 133 mmol/L (136-145); Total Bilirubin 0.3 mg/dL (0.15-1.2); Total Protein 7.3 g/dL (6.6-8.7)
--- NOTE | 2024-06-11 15:04 | ED_ITS ---
HPI - Back Pain/Injury 2 General: Chief Complaint: Back Pain/Injury Stated Complaint: back pain Time Seen by Provider: 06/11/24 14:47 History of Present Illness: Patient presents with back pain. This has been present for a long time but worse recently. Family was worried about a urinary tract infection. He says it is worse when he lays on his right side. He has no pain at this time. He says it is worse at night. It has woken him up at times when he rolls over. No saddle numbness, no urinary retention or incontinence, no focal motor deficit, no sensory deficit. no recent fever. no cough. no shortness of breath. no chest pain. no abdominal pain. no nausea or vomiting. no dysuria. no altered mental status. no edema. Related Data Home Medications Medication Instructions Recorded Confirmed acetaminophen 500 mg tablet 1,000 mg PO Q6H PRN Pain 05/12/23 04/20/24 furosemide 20 mg tablet 20 mg PO QAM 05/12/23 04/20/24 potassium chloride 10 mEq 10 meq PO QAM 05/12/23 04/20/24 tablet,extended release metformin 500 mg tablet 250 mg PO BID 05/12/24 Previous Rx's Medication Instructions Recorded docusate sodium 100 mg capsule 100 mg PO BID #14 caps 03/30/23 (Colace) amlodipine 10 mg tablet 10 mg PO QAM #90 tabs 07/30/23 sitagliptin phosphate 100 mg See Rx Instructions .Route 08/05/23 tablet (Januvia) .COMPLEX #90 tabs pen needle, diabetic 31 gauge x #100 ea 08/31/23 5/16 (BD Ultra-Fine Short Pen Needle) citalopram 10 mg tablet See Rx Instructions .Route 09/01/23 .COMPLEX #30 tabs clopidogrel 75 mg tablet 75 mg PO QAM #90 tabs 09/14/23 cholecalciferol (vitamin D3) 50 50 mcg PO DAILY #30 caps 09/23/23 mcg (2,000 unit) capsule tamsulosin 0.4 mg capsule See Rx Instructions .Route 10/01/23 .COMPLEX #180 caps famotidine 40 mg tablet 40 mg PO DAILY #90 tabs 10/15/23 carvedilol 25 mg tablet See Rx Instructions .Route 11/19/23 .COMPLEX #180 tabs insulin detemir U-100 100 unit/mL See Rx Instructions .Route 12/31/23 (3 mL) subcutaneous pen (Levemir .COMPLEX #60 mL FlexPen) ondansetron HCl 4 mg tablet 4 mg PO Q8H PRN nausea and 03/22/24 vomiting #30 tabs valsartan 160 1 tab PO BID #180 tabs 04/05/24 mg-hydrochlorothiazide 12.5 mg tablet semaglutide 1 mg/dose (4 mg/3 mL) 1 mg (0.75 mL) SUBCUT Q7D #3 mL 04/20/24 subcutaneous pen injector (Ozempic) atorvastatin 20 mg tablet See Rx Instructions .Route 04/26/24 .COMPLEX #90 tabs alprazolam 0.5 mg tablet 0.5 mg PO TID PRN anxiety #90 tabs 04/28/24 finasteride 5 mg tablet See Rx Instructions .Route 04/28/24 .COMPLEX #90 tabs cyanocobalamin (vitamin B-12) 500 500 mcg PO DAILY #30 tabs 05/12/24 mcg tablet (Vitamin B-12) cyclobenzaprine 5 mg tablet 5 mg PO BEDTIME PRN muscle spasm 06/11/24 #10 tabs diclofenac sodium 50 mg 50 mg PO BID PRN pain 5 days #10 06/11/24 tablet,delayed release tabs Allergies Allergy/AdvReac Type Severity Reaction Status Date / Time No Known Allergies Allergy Verified 06/11/24 13:31 Review of Systems 2 Narrative: Constitutional symptoms: Negative except as documented in HPI. Skin symptoms: Negative except as documented in HPI. Eye symptoms: Negative except as documented in HPI. ENMT symptoms: Negative except as documented in HPI. Respiratory symptoms: Negative except as documented in HPI. Cardiovascular symptoms: Negative except as documented in HPI. Gastrointestinal symptoms: Negative except as documented in HPI. Genitourinary symptoms: Negative except as documented in HPI. Musculoskeletal symptoms: Negative except as documented in HPI. Neurologic symptoms: Negative except as documented in HPI. Psychiatric symptoms: Negative except as documented in HPI. Endocrine symptoms: Negative except as documented in HPI. PFSH ED 2 PFSH: Medical History (Updated 06/11/24 @ 15:00 by Neha Chadwick MD) Essential hypertension History of TIA (transient ischemic attack) Urinary incontinence Urgency incontinence BPH loc w urin obs/LUTS HTN (hypertension) with goal to be determined Surgical History Status post hemorrhoidectomy S/P cervical spinal fusion S/P carpal tunnel release Hx of umbilical hernia repair Hx of colonoscopy with polypectomy Family History Mother , in her 80's Cancer breast with mets Father , at age 85 Dementia Other Diabetes Hypertension Stroke Social History Smoking and tobacco/nicotine status: former use of tobacco/nicotine Alcohol intake: never Marital status: Current occupational status: retired Physical Exam 2 Narrative: EXAM NARRATIVE: General: Alert, no acute distress. Skin: Warm, dry. Head: Normocephalic, atraumatic. Neck: Supple, trachea midline. Eye: Extraocular movements are intact. Ears, nose, mouth and throat: mucosa moist. Cardiovascular: Regular, Normal peripheral perfusion. Respiratory: Lungs are clear to auscultation, respirations are non-labored, breath sounds are equal, Symmetrical chest wall expansion. Gastrointestinal: Soft, Nontender, Non distended Musculoskeletal: Normal ROM, no deformity. Neurological: Alert and oriented, No focal neurological deficit observed. Psychiatric: Cooperative, appropriate mood & affect. Course 2 Vital Signs: Vital signs: Vital Signs Temperature 97.8 F 06/11/24 13:24 Pulse Rate 63 06/11/24 15:25 Respiratory Rate 16 06/11/24 15:25 Blood Pressure 139/64 06/11/24 15:25 Pulse Oximetry 96 06/11/24 15:25 Oxygen Delivery Me thod Room Air 06/11/24 13:24 MDM - Back Pain/Injury Medical Decision Making Medical decision making: Differential diagnosis including but not limited to and based on the above HPI, review of systems and physical exam: Ureterolithiasis. Urinary tract infection. Appendicitis. Cholecystis. Musculoskeletal / back pain. Pyelonephritis Orders placed to evaluate differential diagnosis based on the above differential, HPI and physical exam Lab Review: Laboratory results were reviewed and interpreted by myself the emergency room physician. Lab work is unremarkable. No leukocytosis. No anemia. BUN and creatinine are 25 and 1 which is at or above his baseline slightly on his BUN. Urinalysis is clear. I reviewed the patient's medical record. Reexamination: We discussed at length that his symptoms seem to be musculoskeletal as they come and go and are positional. His urinalysis shows no signs of infection or blood so likely not a kidney stone or UTI. Assessment and plan: Back pain - Discharged home - Discussed plan with patient. Answered any questions. - Evaluation and treatment of this problem were appropriate in the emergency setting. Labs 06/11/24 14:06 06/11/24 14:06 Laboratory Results WBC 5.59 10^3/uL (3.29-11.43) 06/11/24 14:06 RBC 4.67 10^6/uL (3.85-5.65) 06/11/24 14:06 Hgb 13.50 g/dL (11.27-16.99) 06/11/24 14:06 Hct 42.1 % (37-53) 06/11/24 14:06 MCV 90.1 fl (82-101) 06/11/24 14:06 MCH 28.9 pg (27-33) 06/11/24 14:06 MCHC 32.1 g/dL (30-55) 06/11/24 14:06 RDW 13.7 % (12.1-15.1) 06/11/24 14:06 Plt Count 224 10^3/cmm (157-399) 06/11/24 14:06 MPV 9.5 fL (7.4-10.4) 06/11/24 14:06 Neut % (Auto) 61.6 % 06/11/24 14:06 Lymph % (Auto) 25.9 % 06/11/24 14:06 [place] % (Auto) 6.8 % 06/11/24 14:06 Eos % (Auto) 4.1 % 06/11/24 14:06 Baso % (Auto) 0.7 % 06/11/24 14:06 Neut # (Auto) 3.44 10^3/uL (1.8-7.7) 06/11/24 14:06 Lymph # (Auto) 1.5 10^3/uL (0.8-4.8) 06/11/24 14:06 [place] # (Auto) 0.4 10^3/uL (0.2-0.9) 06/11/24 14:06 Eos # (Auto) 0.2 10^3/uL (0.0-0.8) 06/11/24 14:06 Baso # (Auto) 0.0 10^3/uL (0.0-0.1) 06/11/24 14:06 Nucleated RBC % (auto) 0 % 06/11/24 14:06 Nucleated RBCs # 0.0 /100WBC 06/11/24 14:06 Sodium 133 mmol/L (136-145) L 06/11/24 14:06 Potassium 4.2 mmol/L (3.5-5.1) 06/11/24 14:06 Chloride 100 mmol/L (98-107) 06/11/24 14:06 Carbon Dioxide 24 mmol/L (22-29) 06/11/24 14:06 Anion Gap 13.2 (5-19) 06/11/24 14:06 BUN 25 mg/dL (8-23) H 06/11/24 14:06 Creatinine 1.0 mg/dL (0.7-1.2) 06/11/24 14:06 GFR Calculation Not Reportable 06/11/24 14:06 Glucose 156 mg/dL (65-115) H 06/11/24 14:06 Calculated Osmolality 284 mOsm/kg (285-295) L 06/11/24 14:06 Calcium 9.1 mg/dL (8.5-10.5) 06/11/24 14:06 Total Bilirubin 0.3 mg/dL (0.15-1.2) 06/11/24 14:06 AST 11 U/L (0-40) 06/11/24 14:06 ALT 15 U/L (0-41) 06/11/24 14:06 Alkaline Phosphatase 87 U/L (40-130) 06/11/24 14:06 Total Protein 7.3 g/dL (6.6-8.7) 06/11/24 14:06 Albumin 4.4 g/dL (3.5-5.2) 06/11/24 14:06 Globulin 2.9 g/dL (1.3-4.6) 06/11/24 14:06 Urine Color Yellow (Yellow) 06/11/24 13:44 Urine Appearance Clear (CLEAR) 06/11/24 13:44 Urine pH 5.5 (5-7) 06/11/24 13:44 Ur Specific [place] 1.018 (1.005-1.030) 06/11/24 13:44 Urine Protein Negative (Negative) 06/11/24 13:44 Urine Glucose (UA) Negative (Normal) 06/11/24 13:44 Urine Ketones Negative (Negative) 06/11/24 13:44 Urine Blood Negative (Negative) 06/11/24 13:44 Urine Nitrate Negative (Negative) 06/11/24 13:44 Urine Bilirubin Negative (Negative) 06/11/24 13:44 Urine Urobilinogen 1.0 mg/dL (Negative) 06/11/24 13:44 Ur Leukocyte Esterase Negative (Negative) 06/11/24 13:44 Urine RBC 0-2 /hpf (0-2) 06/11/24 13:44 Urine WBC 0-5 /hpf (0-5) 06/11/24 13:44 Ur Squamous Epith Cells 0-5 /hpf (0-5) 06/11/24 13:44 Amorphous Sediment Not Reportable 06/11/24 13:44 Urine Bacteria None seen /hpf (NONE) 06/11/24 13:44 Hyaline Casts 0-4 /lpf H 06/11/24 13:44 No radiology studies performed this visit Discharge Plan Discharge Patient Disposition: Home Clinical Impression: Lumbar radiculopathy Condition: Stable Prescriptions: New diclofenac sodium 50 mg tablet,delayed release (DR/EC) 50 mg PO BID PRN (Reason: pain) 5 Days Qty: 10 0RF cyclobenzaprine 5 mg tablet 5 mg PO BEDTIME PRN (Reason: muscle spasm) Qty: 10 0RF No Action cholecalciferol (vitamin D3) 50 mcg (2,000 unit) capsule 50 mcg PO DAILY Qty: 30 6RF valsartan-hydrochlorothiazide 160-12.5 mg tablet 1 tab PO BID Qty: 180 3RF ondansetron HCl 4 mg tablet 4 mg PO Q8H PRN (Reason: nausea and vomiting) Qty: 30 3RF amlodipine 10 mg tablet 10 mg PO QAM Qty: 90 3RF Januvia 100 mg tablet See Rx Instructions .ROUTE .COMPLEX Qty: 90 3RF Dose Instruction: TAKE 1 TABLET BY MOUTH EVERY DAY Rx Instructions: TAKE 1 TABLET BY MOUTH EVERY DAY (DME) pen needle, diabetic [BD Ultra-Fine Short Pen Needle] 31 gauge x 5/16 needle See Rx Instructions .Route Qty: 100 6RF Rx Instructions: As directed citalopram 10 mg tablet See Rx Instructions .ROUTE .COMPLEX Qty: 30 6RF Dose Instruction: TAKE 1 TABLET BY MOUTH EVERY DAY Rx Instructions: TAKE 1 TABLET BY MOUTH EVERY DAY clopidogrel 75 mg tablet 75 mg PO QAM Qty: 90 3RF Hold Instructions: Resume on 05/21/23. tamsulosin 0.4 mg capsule See Rx Instructions .ROUTE .COMPLEX Qty: 180 3RF Dose Instruction: TAKE 2 CAPSULES BY MOUTH AT BEDTIME Rx Instructions: TAKE 2 CAPSULES BY MOUTH AT BEDTIME famotidine 40 mg tablet 40 mg PO DAILY Qty: 90 3RF carvedilol 25 mg tablet See Rx Instructions .ROUTE .COMPLEX Qty: 180 3RF Dose Instruction: TAKE ONE TABLET BY MOUTH TWICE A DAY Rx Instructions: TAKE ONE TABLET BY MOUTH TWICE A DAY Levemir FlexPen 100 unit/mL (3 mL) insulin pen See Rx Instructions .ROUTE .COMPLEX Qty: 60 6RF Rx Instructions: 70 units subcutaneously in the am and 30 units in the pm Ozempic 1 mg/dose (4 mg/3 mL) pen injector 1 mg SUBCUT Q7D Qty: 3 6RF atorvastatin 20 mg tablet See Rx Instructions .ROUTE .COMPLEX Qty: 90 3RF Dose Instruction: TAKE ONE TABLET BY MOUTH AT BEDTIME Rx Instructions: TAKE ONE TABLET BY MOUTH AT BEDTIME finasteride 5 mg tablet See Rx Instructions .ROUTE .COMPLEX Qty: 90 3RF Dose Instruction: TAKE ONE TABLET BY MOUTH ONCE DAILY Rx Instructions: TAKE ONE TABLET BY MOUTH ONCE DAILY alprazolam 0.5 mg tablet 0.5 mg PO TID PRN (Reason: anxiety) Qty: 90 2RF metformin 500 mg tablet 250 mg PO BID cyanocobalamin (vitamin B-12) [Vitamin B-12] 500 mcg tablet 500 mcg PO DAILY Qty: 30 6RF docusate sodium [Colace] 100 mg capsule 100 mg PO BID Qty: 14 0RF acetaminophen 500 mg Tablet 1,000 mg PO Q6H PRN (Reason: Pain) potassium chloride 10 mEq tablet extended release 10 meq PO QAM furosemide 20 mg tablet 20 mg PO QAM Discharge Orders: Discharge ED (Routine); Ordered 06/11/24 Ordered By: Neha Chadwick Referrals: Wali Elena MD [Primary Care Provider] - Discharge Diet: Usual diet Discharge Activity: Increase activity as tolerated Patient Instructions: Lumbar Radiculopathy (ED), Opioid Safety, Pain Management Activity Restrictions/Additional Instructions: Thank you for choosing [facility] for your healthcare needs today. Please realize this is an emergency room and that we are providing you with a medical screening exam and this may not be complete and all inclusive of all the testing and or work up that you may need to determine your ailment or severity of your illness. You have been screened and evaluated and felt safe for discharge. Health conditions do change or evolve sometimes and as such it is important that you follow up with your Primary Doctor to be re checked, 3-5 days is a general good time frame for follow up. You are always welcome to return to the ED for re assessment if your symptoms are worsening or you have new concerns Coding Level of Care Code ED Autopsy Pathologist for Glynn Sharma
[2024-06-11] MEDS: dexamethasone 10 mg/mL INJ IM (15:06)
[2024-06-11 15:25] VITALS: BP 139/64; PULSE 63; RESP 16; O2SAT 96
== END 2024-06-11 15:19 | disposition home or self-care (01) ==
PROVIDERS: Family Medicine; Emergency Provider Emergency Medicine; PCP Family Medicine
DX: M54.16 Radiculopathy, lumbar region (principal); Z79.02 Long term (current) use of antithrombotics/antiplatelets; Z87.891 Personal history of nicotine dependence; Z86.73 Personal history of transient ischemic attack (TIA), and cerebral infarction without residual deficits; I10 Essential (primary) hypertension
CPT/HCPCS: 36415; 80053; 81001; 85025; 96372; 99284; J1100

== ENCOUNTER → 2024-06-22 11:00 | Outpatient (BNVA) | payer MEDICARE, SELFPAY | PROVIDERS: PCP Family Medicine; Visit Provider Podiatrist Foot & Ankle Surgery | DX: I73.9 Peripheral vascular disease, unspecified (principal); E11.69 Type 2 diabetes mellitus with other specified complication; L60.3 Nail dystrophy; Z79.4 Long term (current) use of insulin; Z79.84 Long term (current) use of oral hypoglycemic drugs | CPT/HCPCS: 11721 ==

== ENCOUNTER 2024-07-07 10:44 | Outpatient (CLI) | payer MEDICARE, SELFPAY ==
--- NOTE | 2024-07-07 10:48 | XR_ITS ---
WS: [id number] XR knee RT 3V* [id number] REASON FOR EXAM: Right knee pain FINDINGS: No fracture or focal bone lesion. The medial knee joint space is intact with mild subchondral sclerosis. Mild narrowing of the lateral joint space with minimal subchondral sclerosis. Patellofemoral joint space is intact with minimal subchondral sclerosis. XR/XR knee RT 3V* [id number] IMPRESSION: Minimal to mild osteoarthritis of the right knee as above.
== END 2024-07-07 10:45 | disposition home or self-care (01) ==
LOC: RAD 10:45
PROVIDERS: PCP Family Medicine; Visit Provider Family Medicine
DX: M25.561 Pain in right knee (principal); Z23 Encounter for immunization
CPT/HCPCS: 73562; 90662

== ENCOUNTER → 2024-07-11 09:37 | Outpatient (BNVA) | payer MEDICARE, SELFPAY | PROVIDERS: PCP Family Medicine; Visit Provider Family Medicine | DX: B34.9 Viral infection, unspecified (principal) | CPT/HCPCS: 87426 ==

== ENCOUNTER → 2024-08-24 11:15 | Outpatient (BNVA) | payer MEDICARE, SELFPAY | PROVIDERS: PCP Family Medicine; Visit Provider Podiatrist Foot & Ankle Surgery | DX: E11.8 Type 2 diabetes mellitus with unspecified complications (principal); I73.9 Peripheral vascular disease, unspecified; E11.69 Type 2 diabetes mellitus with other specified complication; L60.3 Nail dystrophy; Z79.4 Long term (current) use of insulin; Z79.84 Long term (current) use of oral hypoglycemic drugs | CPT/HCPCS: 11721 ==

== ENCOUNTER → 2024-09-28 08:37 | Outpatient (BNVA) | payer MEDICARE, SELFPAY | PROVIDERS: PCP Family Medicine; Visit Provider Family Medicine | DX: Z51.81 Encounter for therapeutic drug level monitoring (principal); E11.69 Type 2 diabetes mellitus with other specified complication; E66.9 Obesity, unspecified; E11.9 Type 2 diabetes mellitus without complications; E53.8 Deficiency of other specified B group vitamins | CPT/HCPCS: 80053; 82607; 83036; 85025 ==

== ENCOUNTER → 2024-10-04 13:48 | Outpatient (BNVA) | payer MEDICARE, SELFPAY | PROVIDERS: PCP Family Medicine; Visit Provider Internal Medicine Cardiovascular Disease | DX: I10 Essential (primary) hypertension (principal); E11.69 Type 2 diabetes mellitus with other specified complication; E78.5 Hyperlipidemia, unspecified; I34.0 Nonrheumatic mitral (valve) insufficiency; I25.2 Old myocardial infarction; Z79.4 Long term (current) use of insulin; Z79.84 Long term (current) use of oral hypoglycemic drugs | CPT/HCPCS: 99214 ==

== ENCOUNTER → 2024-10-26 10:24 | Outpatient (BNVA) | payer MEDICARE, SELFPAY | PROVIDERS: PCP Family Medicine; Visit Provider Physician Assistant | DX: M65.312 Trigger thumb, left thumb (principal) | CPT/HCPCS: 73130; 99204 ==

== ENCOUNTER 2024-11-11 12:17 | Outpatient (CLI) | payer MEDICARE, SELFPAY ==
--- NOTE | 2024-11-11 12:21 | XR_ITS ---
WS: [id number] Exam: XR thoracic spine 3V* [id number] Date/Time of Exam: 11/11/2024 12:25 PM Reason For Exam: Thoracic radiculopathy No fracture. There is spondylosis. Paraspinal soft tissues are unremarkable. Slight dextroscoliosis. XR/XR thoracic spine 3V* [id number] IMPRESSION: 1. Spondylosis and degenerative change. No fracture or malalignment.
--- NOTE | 2024-11-11 12:21 | XR_ITS ---
WS: [id number] Exam: XR lumbar spine 2-3V* [id number] Date/Time of Exam: 11/11/2024 12:25 PM Reason For Exam: Lumbar back pain No acute fracture. Degeneration of the L5-S1 disc. Mild spondylosis. Posterior elements are intact. Facet arthropathy at L4-5 and L5-S1. XR/XR lumbar spine 2-3V* [id number] IMPRESSION: 1. No fracture or malalignment. Degenerative changes as above.
== END 2024-11-11 12:18 | disposition home or self-care (01) ==
LOC: RAD 12:18
PROVIDERS: PCP Family Medicine; Visit Provider Family Medicine
DX: M54.14 Radiculopathy, thoracic region (principal); M47.896 Other spondylosis, lumbar region; M47.894 Other spondylosis, thoracic region; M51.34 Other intervertebral disc degeneration, thoracic region; M51.379 Other intervertebral disc degeneration, lumbosacral region without mention of lumbar back pain or lower extremity pain; M47.897 Other spondylosis, lumbosacral region
CPT/HCPCS: 72072; 72100

== ENCOUNTER → 2024-11-23 11:28 | Outpatient (BNVA) | payer MEDICARE, SELFPAY | PROVIDERS: PCP Family Medicine; Visit Provider Podiatrist Foot & Ankle Surgery | DX: E11.69 Type 2 diabetes mellitus with other specified complication (principal); L60.3 Nail dystrophy; Z79.84 Long term (current) use of oral hypoglycemic drugs; I73.9 Peripheral vascular disease, unspecified; Z79.4 Long term (current) use of insulin | CPT/HCPCS: 11721 ==

== ENCOUNTER 2024-11-25 06:52 | Day surgery (SDC) | payer MEDICARE, SELFPAY ==
[2024-11-25] VITALS (7 sets, daily range): BP systolic 97–140; BP diastolic 55–83; PULSE 57–69; RESP 12–18; TEMP 36.1–36.3; O2SAT 93–96; BMI 34.8
[2024-11-25 07:21] LABS: Glucose Point of Care 150 mg/dL (70-110)
[2024-11-25] MEDS: ketorolac 30 mg/mL INJ IVP (07:23)
[2024-11-25] MEDS: sodium chloride 0.9% 1,000 ML 30 ML IV (07:23)
[2024-11-25] MEDS: acetaminophen 1,000 MG/100 ML PIGGYBACK 400 MG IV (07:24)
--- NOTE | 2024-11-25 08:15 | ANES.PREANE2 ---
Pre-Anesthetic Assessment Height/Weight: Height 1.8 m Weight 113.398 kg Temp Pulse Resp BP Pulse Ox O2 Del Method 97.2 F L 69 16 140/83 96 Room Air 11/25/24 07:08 11/25/24 07:08 11/25/24 07:08 11/25/24 07:08 11/25/24 07:08 11/25/24 08:09 Preop Diagnosis: left thumb trigger finger Operation Date: 11/25/24 08:00 Proposed Procedures p Left Thumb Trigger Finger Release(Left) - Aden Vazquez DO Familial anesthetic complications: none Was Beta Mikaela taken within 24 hours: Yes Was Clonidine taken within 24 hours: N/A Last intake: Intake Last Liquid Date 11/24/24 Last Liquid Time 19:00 Last Solid Date 11/24/24 Last Solid Time 19:00 Social No alcohol and No tobacco previous smoker, quit 50 years ago Exam alert, oriented x 3 and clear to auscultation bilaterally Airway Cervical ROM: Other ( limited, previous neck fusion) Mallampati: Class III Dentition: false History/ROS No significant history except as noted Pulmonary None reported CV/HEM Hypertension None reported Hepatic None reported GI None reported Metabolic Diabetes Mellitus Musc/skel Lower Back Pain previous neck fusion Neuropsych Transient Ischemic Attack (5 years ago) Anesthetic Plan ASA status: 3 Anesthesia: Anesthesia Evaluation and MAC Risk of > 500 ml blood loss (7ml/kg in children): No Medications/Allergies Home Medications ?Medication ?Instructions ?Recorded ?Confirmed ?Last Taken ?Type acetaminophen 500 mg tablet 1,000 mg PO Q6H PRN Pain 05/12/23 11/25/24 3 Weeks Ago History ~11/04/24 cholecalciferol (vitamin D3) 50 50 mcg PO DAILY #30 caps 09/23/23 11/25/24 Unknown Rx mcg (2,000 unit) capsule ondansetron HCl 4 mg tablet 4 mg PO Q8H PRN nausea and 03/22/24 11/25/24 Unknown Rx vomiting #30 tabs finasteride 5 mg tablet See Rx Instructions .Route 04/28/24 11/25/24 11/24/24 Rx .COMPLEX #90 tabs cyanocobalamin (vitamin B-12) 500 500 mcg PO DAILY #30 tabs 05/12/24 11/25/24 Unknown Rx mcg tablet (Vitamin B-12) amlodipine 10 mg tablet See Rx Instructions .Route 07/18/24 11/25/24 11/24/24 Rx .COMPLEX #90 tabs atorvastatin 20 mg tablet See Rx Instructions .Route 07/21/24 11/25/24 11/24/24 Rx .COMPLEX #90 tabs metformin 500 mg tablet 250 mg (1/2 x 500 mg) PO BID #90 07/21/24 11/25/24 11/24/24 Rx tabs sitagliptin phosphate 100 mg See Rx Instructions .Route 08/15/24 11/25/24 11/24/24 Rx tablet (Januvia) .COMPLEX #90 tabs clopidogrel 75 mg tablet 75 mg PO QAM #90 tabs 09/15/24 11/25/24 11/21/24 Rx tamsulosin 0.4 mg capsule See Rx Instructions .Route 09/23/24 11/25/24 11/24/24 Rx .COMPLEX #180 caps citalopram 20 mg tablet 40 mg PO DAILY 10/04/24 11/25/24 11/24/24 History furosemide 20 mg tablet 20 mg PO QAM 10/04/24 11/25/24 Unknown History hydrochlorothiazide 12.5 mg tablet 12.5 mg PO DAILY #90 tabs 10/04/24 11/25/24 11/24/24 Rx potassium chloride 10 mEq 10 meq PO QAM 10/04/24 11/25/24 11/24/24 History tablet,extended release famotidine 40 mg tablet 40 mg PO DAILY #90 tabs 10/10/24 11/25/24 11/24/24 Rx insulin glargine 100 unit/mL (3 See Rx Instructions SUBCUT BID 10/23/24 11/25/24 11/24/24 History mL) subcutaneous pen (Lantus Solostar U-100 Insulin) carvedilol 25 mg tablet See Rx Instructions .Route 11/10/24 11/25/24 11/21/24 Rx .COMPLEX #180 tabs alprazolam 0.5 mg tablet 0.5 mg PO TID PRN anxiety #90 tabs 11/11/24 11/25/24 Unknown Rx gabapentin 100 mg capsule 100 mg PO TID PRN back pain #90 11/11/24 11/25/24 Unknown Rx caps semaglutide 1 mg/dose (4 mg/3 mL) 1 mg (0.75 mL) SUBCUT Q7D #3 mL 11/15/24 11/25/24 11/13/24 Rx subcutaneous pen injector (Ozempic) pen needle, diabetic 31 gauge x #100 ea 11/18/24 11/25/24 Unknown Rx 12/16 valsartan 160 mg tablet 160 mg PO BID #90 tabs 11/23/24 11/25/24 11/24/24 Rx tramadol 50 mg tablet 50 mg PO Q6H PRN pain 5 days #20 11/25/24 Unknown Rx tabs Allergies Allergy/AdvReac Type Severity Reaction Status Date / Time No Known Allergies Allergy Verified 11/25/24 07:08 Current Medications Generic Name Dose Route Start Last Admin Trade Name Freq PRN Reason Stop Dose Admin Sodium Chloride 1,000 mls @ 30 mls/hr 11/25/24 07:15 11/25/24 07:23 Sodium Chloride 0.9% IV 11/26/24 07:14 30 mls/hr .Q24H NATALIE Administration PFSH Anesthesia Medical History Essential hypertension History of TIA (transient ischemic attack) Urinary incontinence Urgency incontinence BPH loc w urin obs/LUTS HTN (hypertension) with goal to be determined Surgical History Status post hemorrhoidectomy S/P cervical spinal fusion S/P carpal tunnel release Hx of umbilical hernia repair Hx of colonoscopy with polypectomy Family History Mother , in her 80's Cancer breast with mets Father , at age 85 Dementia Other Diabetes Hypertension Stroke Social History Smoking and tobacco/nicotine status: never used tobacco/nicotine Alcohol intake: never Marital status: Current occupational status: retired Data Anesthesia Cardiac Studies: Echocardiogram 05/13/24 Sestamibi Stress Test (Cardiology) 05/05/24
--- NOTE | 2024-11-25 08:16 | W.PM.OPSUD ---
Surgery/Procedure H&P Update DATE OF PROCEDURE: November 25, 2024 DATE H&P PERFORMED: 10/26/24 H&P UPDATE INFORMATION: I have reviewed H&P completed within last 30 days, I have examined patient prior to procedure and No changes to prior documentation PREOP DIAGNOSIS: Left thumb trigger PRIMARY INDICATION FOR PROCEDURE: Left thumb trigger PLANNED PROCEDURE: Operation Date: 11/25/24 08:00 Proposed Procedures p Left Thumb Trigger Finger Release(Left) - Aden Vazquez DO
[2024-11-25] MEDS: ceFAZolin 2,000 MG in sodium chloride 0.9% (plus) 50 ML 100 MG IV (08:19)
[2024-11-25] MEDS: ROPivacaine 0.5% SDV 30 mL 150 MG INJECTION (08:39)
[2024-11-25] MEDS: lidocaine 1% 10 ML INJ XX (08:40)
--- NOTE | 2024-11-25 08:46 | W.PM.BPON ---
Date of Procedure:11/25/24 Surgeon: Aden Vazquez DO Side Seam Envelope Machine Operator(s): None Procedure(s) performed: Left thumb trigger release Findings of the procedure(s): Patient underwent procedure as planned without issues or complications Estimated blood loss: 2 mL Specimen(s) removed: None Post-operative diagnosis: Left thumb trigger
--- NOTE | 2024-11-25 08:47 | PM.OP ---
Operative Report Date of procedure: November 25, 2024 Surgeon: Aden Vazquez DO Procedure: Post-op diagnosis: Left?thumb?trigger Procedure done: Left?thumb?trigger?release Surgeon: Aden Vazquez DO Estimated blood loss: 2 mL Tourniquet time: 9 minutes Anesthesia: MAC/Local IV fluids: See anesthesia record Complications: None Findings: See operative report narrative Condition: stable Disposition: same day Brief History: Patient presents to the outpatient setting with findings consistent with a Left?thumb?trigger. Patient has been worked up in the outpatient setting and is failed conservative treatment approach.? We talked about treatment options and ultimately patient would like to proceed with a Left?thumb?trigger?release. At this point time I feel this is an appropriate as this is step in treatment option as patient does have significant decreased range of motion in locking/triggering of his thumb.? We talked about the risk benefits complications and alternatives with surgical nonsurgical treatment options.? Understanding risk of surgery patient agrees to proceed with a Left?thumb?trigger?release. All questions answered. Procedure: Patient was seen evaluated in the preoperative holding area.? Consent was reviewed and signed with patient.? Correct extremity was then marked.? Patient was then seen and evaluated by the anesthesia department once cleared for surgery patient was then taken back to the operative suite patient was placed in supine position and all bony prominences well-padded the patient was properly secured to the bed.? Armboard was applied to the Left upper extremity and the Left upper extremity was then placed with a nonsterile tourniquet to the Left upper arm.? This point time the Left upper extremity was then prepped and draped in standard orthopedic fashion.? A final timeout was performed.? Patient received appropriate preoperative antibiotics. Esmarch tourniquet was used exsanguinate the Left upper extremity and tourniquet was insufflated to 250 mmHg.? I identified patient's MP flexion crease marked appropriate incision transversely across the flexion crease within Nurys's lines sharp scalpel incision was made only through skin.? Once this was done I switched to Littler dissection scissors this I then subsequently spread longitudinally in the planes of the digital nerves.? Once these were identified these were protected by my healthcare administrative assistant with Kasdan retractors.? Next I identified directly over the A1 karen of the Left?thumb.? This was significantly thickened and identified to be the area of patient's?thumb?triggering.? I used sharp scalpel to incise the A1 karen and then utilized my healthcare administrative assistant to retract the ability and under loupe magnification released the entirety of the A1 karen both proximally and distally up to the oblique karen.? This point time the tendon was then inspected and found to be healthy there was some inflammation around the tendon itself, with some early signs of tendon fraying due to the excessive inflammation. This was gently debrided. The Ragnell was used to pull the tendon out of the incision and there was no mechanical?triggering I then took the patient's?thumb?through range of motion no ?triggering was noted.? ?I then let the tourniquet down identified and maintained exact hemostasis with bipolar electrocautery irrigated the wound bed and then closed the incision with interrupted nylon suture. Incision sites were then dressed with Xeroform 4 x 4's Kerlix Jasmeet wrap and an Jesus wrap.? Patient was then awakened from anesthesia and taken to PACU in stable condition. Disposition: Patient taken to PACU in stable condition recovering well.? Dressing on in place clean dry and intact.? Patient was receive appropriate discharge instruction as well as pain medication postoperatively.? Patient may be allowed weightbearing as tolerated to the Left hand and encourage range of motion once dressing come down after 72 hours.? Patient to follow-up with me in the office in 2 weeks.? Patient understands and agrees with current plan.? All questions answered.
--- NOTE | 2024-11-25 09:55 | ANE.PACU2 ---
Inpatient post-anesthesia follow up: Airway intact: Yes Vital signs: Temperature 97.2 F Pulse Rate 57 Respiratory Rate 16 Blood Pressure 125/75 Pulse Oximetry 93 Oxygen Delivery Me thod Room Air Oxygen Flow Rate 6 Fraction of Inspir ed Oxygen Hydration adequate: Yes Nausea and vomiting: No Pain level: 1 Mental status: Baseline
== END 2024-11-25 09:52 | disposition home or self-care (01) ==
PROVIDERS: PCP Family Medicine; Visit Provider Student in an Organized Health Care Education/Training Program
PROC: (CPT 26055; principal; 2024-11-25 08:00)
DX: M65.312 Trigger thumb, left thumb (principal); I10 Essential (primary) hypertension; E11.9 Type 2 diabetes mellitus without complications; Z86.73 Personal history of transient ischemic attack (TIA), and cerebral infarction without residual deficits; Z79.899 Other long term (current) drug therapy; Z79.4 Long term (current) use of insulin; Z79.84 Long term (current) use of oral hypoglycemic drugs; Z79.85 Long-term (current) use of injectable non-insulin antidiabetic drugs
CPT/HCPCS: 26055; 36416; 82962; J0131; J0690; J1885; J2704; J2795; J3010; J7030; J9999

== ENCOUNTER → 2024-12-07 08:47 | Outpatient (BNVA) | payer MEDICARE, SELFPAY | PROVIDERS: PCP Family Medicine; Visit Provider Physician Assistant | DX: Z98.890 Other specified postprocedural states (principal) | CPT/HCPCS: 99024 ==

== ENCOUNTER → 2025-01-05 11:24 | Outpatient (BNVA) | payer MEDICARE, SELFPAY | PROVIDERS: PCP Family Medicine; Visit Provider Family Medicine | DX: Z51.81 Encounter for therapeutic drug level monitoring (principal); E11.9 Type 2 diabetes mellitus without complications | CPT/HCPCS: 80053; 83036; 85025 ==

== ENCOUNTER → 2025-02-20 14:15 | Outpatient (BNVA) | payer MEDICARE, SELFPAY | PROVIDERS: PCP Family Medicine; Visit Provider Podiatrist Foot & Ankle Surgery | DX: E11.69 Type 2 diabetes mellitus with other specified complication (principal); L60.3 Nail dystrophy; L60.8 Other nail disorders; I73.9 Peripheral vascular disease, unspecified; Z79.84 Long term (current) use of oral hypoglycemic drugs; Z79.4 Long term (current) use of insulin | CPT/HCPCS: 11721 ==

== ENCOUNTER → 2025-03-30 09:25 | Outpatient (BNVA) | payer MEDICARE, SELFPAY | PROVIDERS: PCP Family Medicine; Visit Provider Family Medicine | DX: Z13.6 Encounter for screening for cardiovascular disorders (principal); N40.1 Benign prostatic hyperplasia with lower urinary tract symptoms; E11.9 Type 2 diabetes mellitus without complications; Z51.81 Encounter for therapeutic drug level monitoring | CPT/HCPCS: 80048; 80061; 83036; 84153; 85025 ==

== ENCOUNTER → 2025-05-29 10:39 | Outpatient (BNVA) | payer MEDICARE, SELFPAY | PROVIDERS: PCP Family Medicine; Visit Provider Podiatrist Foot & Ankle Surgery | DX: E11.69 Type 2 diabetes mellitus with other specified complication (principal); L60.3 Nail dystrophy; E11.8 Type 2 diabetes mellitus with unspecified complications; L60.8 Other nail disorders; I73.9 Peripheral vascular disease, unspecified; Z79.84 Long term (current) use of oral hypoglycemic drugs; Z79.4 Long term (current) use of insulin; Z79.85 Long-term (current) use of injectable non-insulin antidiabetic drugs | CPT/HCPCS: 11721 ==

== ENCOUNTER → 2025-07-06 11:34 | Outpatient (BNVA) | payer MEDICARE, SELFPAY | PROVIDERS: PCP Family Medicine; Visit Provider Family Medicine | DX: E11.9 Type 2 diabetes mellitus without complications (principal); Z51.81 Encounter for therapeutic drug level monitoring; E55.9 Vitamin D deficiency, unspecified | CPT/HCPCS: 80053; 82306; 83036; 85025 ==